=== PATIENT | female | born 1950 | race American Indian/Alaskan Native ===

== ENCOUNTER 2018-11-14 19:58 | Inpatient (IN) | payer MEDICARE ==
[2018-11-14] MEDS ORDERED: PLAVIX PO ONE (20:00)
[2018-11-14] MEDS ORDERED: HEPARIN 10,000 UNITS/10 ML IV ONE (20:00)
[2018-11-14] MEDS ORDERED: HEPARIN/ 0.45% NACL-25,000 UNIT/500 ML 25,000 UNIT/500 ML BAG IV SCH ×4 (20:00→23:45)
[2018-11-14] MEDS ORDERED: HEPARIN IV ONE (20:00)
--- NOTE | 2018-11-14 20:04 | Emergency Department Report ---
ED Chest Pain HPI - General Stated Complaint: POSS STEMI Time Seen by Provider: 11/14/18 20:00 Source: patient, EMS - History of Present Illness Initial Comments: 68-year-old female history of hypertension, diabetes presents to ED as a STEMI alert. Patient reports chest tightness, diaphoresis, nausea since this morning. Patient checked her blood sugar and it was high, so she called EMS. When EMS arrived patient was diaphoretic and seemed to be short of breath, so EKG was done. EKG shows ST elevations which were transmitted pre-hospital. STEMI alert was called based on prehospital EKG. Patient given 325 mg aspirin, one sublingual nitroglycerin and transported to the ED. MD Complaint: chest pain -: This morning Onset: during rest Pain Location: substernal Pain Radiation: none Quality: tightness Consistency: constant Improves With: nothing Worsens With: nothing re: nausea, vomting, diaphoresis. denies: dyspnea Treatments Prior to Arrival: aspirin, nitroglycerin - Related Data Home Medications Medication Instructions Recorded Confirmed Last Taken Metformin HCl [metFORMIN] 1,000 tab PO BID 11/15/18 11/15/18 11/14/18 17:00 Allergies Allergy/AdvReac Type Severity Reaction Status Date / Time No Known Allergies Allergy Unverified 11/14/18 20:53 Heart Score - HEART Score History: Highly suspicious EKG: Significant ST-depression Age: > 65 Risk factors: > 3 risk factors or hx of atherosclerotic disease Troponin: > 3x normal limit HEART Score: 10 ED Review of Systems ROS: Stated complaint: POSS STEMI Other details as noted in HPI Comment: All other systems reviewed and negative Respiratory: denies: shortness of breath Cardiovascular: chest pain Gastrointestinal: nausea, vomiting ED Past Medical Hx - Medications Home Medications: Home Medications Medication Instructions Recorded Confirmed Last Taken Type Metformin HCl [metFORMIN] 1,000 tab PO BID 11/15/18 11/15/18 11/14/18 17:00 History ED Physical Exam - General General appearance: alert, lethargic - Head Head exam: Present: atraumatic, normocephalic - Eye Eye exam: Present: normal appearance - ENT ENT exam: Present: mucous membranes moist - Neck Neck exam: Present: normal inspection - Respiratory Respiratory exam: Present: normal lung sounds bilaterally. Absent: respiratory distress - Cardiovascular Cardiovascular Exam: Present: regular rate, irregular rhythm - GI/Abdominal GI/Abdominal exam: Present: soft. Absent: distended - Extremities Exam Extremities exam: Present: normal inspection - Neurological Exam Neurological exam: Present: alert, oriented X3 - Psychiatric Psychiatric exam: Present: normal affect, normal mood - Skin Skin exam: Present: diaphoretic ED Course Vital Signs 11/14/18 11/14/18 11/14/18 20:01 23:00 23:30 Temperature 98.2 F 97.3 F L Pulse Rate 48 L 117 H Pulse Rate [ 123 H Right] Respiratory 16 23 Rate Blood Pressure 139/92 125/83 Blood Pressure 103/63 [Left] O2 Sat by Pulse 100 97 98 Oximetry 11/14/18 11/15/18 11/15/18 23:45 00:00 00:15 Temperature 97.3 F L Pulse Rate 106 H Pulse Rate [ 106 H Right] Respiratory 26 H Rate Blood Pressure 125/83 110/77 103/58 Blood Pressure [Left] O2 Sat by Pulse 96 Oximetry 11/15/18 11/15/18 11/15/18 00:29 00:30 00:31 Temperature Pulse Rate 104 H 100 H Pulse Rate [ Right] Respiratory 40 H 38 H Rate Blood Pressure 79/60 79/60 79/60 Blood Pressure [Left] O2 Sat by Pulse 96 98 Oximetry 11/15/18 11/15/18 11/15/18 00:32 00:50 00:52 Temperature Pulse Rate 100 H Pulse Rate [ Right] Respiratory 23 Rate Blood Pressure 79/60 83/57 Blood Pressure [Left] O2 Sat by Pulse 100 Oximetry 11/15/18 11/15/18 11/15/18 01:00 01:01 01:15 Temperature Pulse Rate 101 H 100 H Pulse Rate [ 104 H Right] Respiratory 28 H 34 H Rate Blood Pressure 98/65 94/59 Blood Pressure [Left] O2 Sat by Pulse 99 100 99 Oximetry 11/15/18 11/15/18 11/15/18 01:30 01:31 01:45 Temperature Pulse Rate 105 H 105 H Pulse Rate [ Right] Respiratory 39 H 59 H Rate Blood Pressure 105/71 105/71 113/75 Blood Pressure [Left] O2 Sat by Pulse 96 99 Oximetry 11/15/18 11/15/18 11/15/18 02:00 02:15 02:30 Temperature Pulse Rate 103 H 102 H 103 H Pulse Rate [ Right] Respiratory 50 H 53 H 45 H Rate Blood Pressure 105/67 113/68 107/71 Blood Pressure [Left] O2 Sat by Pulse 99 97 98 Oximetry 11/15/18 11/15/18 11/15/18 02:45 03:00 03:01 Temperature Pulse Rate 103 H 101 H 99 H Pulse Rate [ Right] Respiratory 52 H 24 53 H Rate Blood Pressure 115/72 107/65 107/65 Blood Pressure [Left] O2 Sat by Pulse 98 98 98 Oximetry 11/15/18 11/15/18 11/15/18 03:15 03:30 03:45 Temperature Pulse Rate 103 H 100 H 99 H Pulse Rate [ Right] Respiratory 53 H 45 H 36 H Rate Blood Pressure 112/76 109/69 108/68 Blood Pressure [Left] O2 Sat by Pulse 99 98 98 Oximetry 11/15/18 11/15/18 11/15/18 04:00 04:15 04:30 Temperature 96.6 F L Pulse Rate 98 H 96 H 96 H Pulse Rate [ Right] Respiratory 52 H 45 H 41 H Rate Blood Pressure 110/71 110/71 100/65 Blood Pressure [Left] O2 Sat by Pulse 100 97 96 Oximetry 11/15/18 11/15/18 11/15/18 04:45 05:01 05:05 Temperature Pulse Rate 95 H 95 H 96 H Pulse Rate [ Right] Respiratory 40 H 51 H Rate Blood Pressure 88/67 112/66 125/91 Blood Pressure [Left] O2 Sat by Pulse 96 98 Oximetry 11/15/18 11/15/18 11/15/18 05:15 05:18 05:31 Temperature Pulse Rate 93 H 97 H 96 H Pulse Rate [ Right] Respiratory 43 H 22 47 H Rate Blood Pressure 116/76 116/76 125/89 Blood Pressure [Left] O2 Sat by Pulse 96 98 98 Oximetry 11/15/18 11/15/18 11/15/18 05:45 06:01 06:12 Temperature Pulse Rate 94 H 93 H 97 H Pulse Rate [ Right] Respiratory 40 H 40 H 22 Rate Blood Pressure 151/94 143/87 Blood Pressure [Left] O2 Sat by Pulse 93 98 98 Oximetry 11/15/18 11/15/18 11/15/18 06:15 07:00 08:00 Temperature 98.5 F 98.5 F Pulse Rate 94 H 93 H 92 H Pulse Rate [ Right] Respiratory 51 H 31 H 28 H Rate Blood Pressure 151/94 111/71 73/44 Blood Pressure [Left] O2 Sat by Pulse 98 98 Oximetry 11/15/18 08:16 Temperature Pulse Rate Pulse Rate [ Right] Respiratory Rate Blood Pressure Blood Pressure [Left] O2 Sat by Pulse 96 Oximetry ED Medical Decision Making - Lab Data Result diagrams: 11/15/18 04:13 11/15/18 07:15 - EKG Data -: EKG Interpreted by Me - EKG Data Interpretation: other (ST elevations in II, III, aVF, V5, V6; ST depressions in I, aVL, V1, V2) - Medical Decision Making Pre-hospital EKG showed evidence of STEMI, so salvage laborer was activated prior to pt arrival. Upon ED arrival, repeat EKG confirmed STEMI. Attempted to administer Plavix, but stated that she could not want swallow it, so it was held. Pt received heparin bolus. Received aspirin and nitro x 1 from EMS. Vitals stable while in ED. Pt was emergently taken to the salvage laborer. - Differential Diagnosis inferior WI, posterior WI Critical Care Time: Yes Critical care time in (mins) excluding proc time.: 35 Critical care attestation.: If time is entered above; I have spent that time in minutes in the direct care of this critically ill patient, excluding procedure time. Critical Care Time: 35 min ED Disposition Clinical Impression: STEMI (ST elevation myocardial infarction) Disposition: OP ADMIT IP TO THIS HOSP Is pt being admited?: Yes Condition: Stable Time of Disposition: 20:15
[2018-11-14] MEDS ORDERED: HEPARIN/NS 5000 UNIT/500ML(CATH LAB) 1,000 ML IR ONE (20:05)
[2018-11-14] MEDS ORDERED: VERSED ONE (20:06)
[2018-11-14] MEDS ORDERED: CALAN ONE (20:06)
[2018-11-14] MEDS ORDERED: SUBLIMAZE ONE (20:06)
[2018-11-14] MEDS: NACL 0.9% 1000 ML 1,000 ML IV SCH (20:06)
[2018-11-14] MEDS ORDERED: XYLOCAINE 2% INFILTRATI ONE (20:07)
[2018-11-14] MEDS ORDERED: NACL 0.9% 500 ML 500 ML ONE ×2 (20:07→20:12)
[2018-11-14] MEDS ORDERED: NITROGLYCERIN SYRINGE 0 ML ONE (20:07)
[2018-11-14] MEDS ORDERED: ADRENALIN ONE (20:28)
[2018-11-14] MEDS ORDERED: PHENYLEPHRINE/NS Syringe 1,000 MCG/10 ML IV ONE (20:28)
[2018-11-14] MEDS ORDERED: INTROPIN DRIP 800 MG/D5W 250 ML 800 MG/250 ML BAG IV ONE ×2 (20:28→21:56)
[2018-11-14] MEDS ORDERED: XYLOCAINE CARDIAC IV ONE (20:28)
[2018-11-14] MEDS ORDERED: ATROPINE 0.1% (CARDIAC) ONE (20:28)
[2018-11-14] MEDS ORDERED: ZOFRAN ONE (20:37)
[2018-11-14] MEDS: HEPARIN 10,000 UNITS/10 ML ONE ×2 (20:50→21:00)
[2018-11-14] MEDS ORDERED: AGGRASTAT DRIP (12.5 MG/250 ML) 12,500 MCG/250 ML BAG IV ONE (20:55)
[2018-11-14] MEDS ORDERED: NACL 0.9% 250ML 250 ML ONE (21:06)
[2018-11-14] MEDS ORDERED: LEVOPHED IV ONE (21:06)
[2018-11-14] MEDS ORDERED: HEPARIN/NS 5000 UNIT/500ML(CATH LAB) 500 ML IR ONE (21:15)
[2018-11-14] MEDS ORDERED: DILAUDID ONE (21:24)
[2018-11-14] MEDS ORDERED: LOPRESSOR IV ONE (21:31)
[2018-11-14] MEDS ORDERED: PERCOCET 5/325 PO PRN (21:40)
[2018-11-14] MEDS ORDERED: DILAUDID IV PRN (21:40)
[2018-11-14] MEDS ORDERED: TYLENOL PO PRN (21:40)
[2018-11-14] MEDS ORDERED: SODIUM CHLORIDE FLUSH SYRINGE 10 ML IV PRN (21:40)
--- NOTE | 2018-11-14 21:40 | Event Note ---
Date: 11/14/18 See H/p in reports STEMI
--- NOTE | 2018-11-14 21:46 | Event Note ---
Date: 11/14/18 68-year-old woman who presented to the emergency room with chest pain and EKG consistent with acute inferior wall ST elevation myocardial infarction. Emergency cardiac catheterization revealed complete occlusion of a large caliber, dominant right coronary artery. Primary angioplasty was successfully performed, with deployment of serial, 4.0-4.5 mm eluting stents, to the midright coronary artery. There was extensive thrombus within the vessel which required export catheter thrombectomy. Due to hemodynamic instability, we inserted an intra-aortic balloon pump, and additionally patient is on pressors as needed. At conclusion of procedure patient is alert and oriented, chest pain free and breathing comfortably. Augmented diastolic blood pressure is 120. Patient is admitted to the CCU for post-[place] supportive care. During her causing the operations label clerk, she developed a narrow complex tachycardia, probably atrial fibrillation, likely exacerbated by the ongoing dopamine infusion. Once blood pressure tolerates, will institute beta reynaldo therapy, as well as digitalis for AV eamon blockade. Echocardiogram for left ventricular function and valvular function assessment. Dual oral antiplatelet therapy with Plavix and aspirin. Additional guidelines directed medical therapy as blood pressure tolerates.
[2018-11-14] MEDS ORDERED: LOPRESSOR IV PRN (21:52)
[2018-11-14] MEDS ORDERED: AGGRASTAT DRIP (12.5 MG/250 ML) 12,500 MCG/250 ML BAG IV SCH (22:00)
[2018-11-14] MEDS ORDERED: NACL 0.9% 1000 ML 1,000 ML IV SCH (22:00)
[2018-11-14] MEDS ORDERED: PLAVIX ONE (22:15)
[2018-11-14] MEDS ORDERED: HEPARIN/ 0.45% NACL-25,000 UNIT/500 ML ONE (22:15)
[2018-11-14] MEDS ORDERED: HEPARIN 10,000 UNITS/10 ML ONE (22:15)
--- NOTE | 2018-11-14 22:24 | Cardiac Catherization Report ---
CARDIAC CATHETERIZATION AND CORONARY ANGIOPLASTY REPORT REASON FOR PROCEDURE: The patient is a 68-year-old woman who presented to the Emergency Room with chest pain and EKG consistent with an acute ST elevation inferior wall myocardial infarction. Emergency cardiac catheterization was done, protocol was activated. Prior to the procedure, the patient was hypotensive with systolic blood pressure in the 60s, supported with intravenous dopamine started in the laboratory operations coordinator. PROCEDURE: The patient was prepped and draped in a sterile fashion under emergency protocol. Right femoral artery was entered using Seldinger technique followed by placement of a 6-Tanzanian sheath. A #4 left Isabela catheter was used for left coronary angiography. We then exchanged for a #4 right Isabela guiding catheter, which was advanced to the right coronary ostium. Right coronary angiography was performed. The angiograms were reviewed. CORONARY ANGIOGRAPHY: The left main coronary artery was free of significant disease. The left anterior descending artery contained a 70-75% stenosis of its mid segment. The circumflex artery and its obtuse marginal branches contained diffuse mild atherosclerosis. The right coronary artery was a large caliber, dominant vessel. This vessel was completely occluded in its mid segment. This was the infarct related lesion. CORONARY ANGIOPLASTY: We performed immediate, primary angioplasty of the right coronary artery. A 0.014 inch [employer] 50 guidewire was then introduced into the right coronary artery, directed through the occluded vessel. Following wire placement, a 3.0 mm balloon catheter was used to predilate the stenosis. Following predilatation, we were able to achieve GAVIN 2 flow, revealing a large vessel that was completely filled with intraluminal thrombus. Serial, 4.0-4.5 mm drug-eluting stents were then deployed to the primary lesion in the mid vessel. Following this, we reestablished GAVIN 2 flow down the distal vessel, revealing still extensive thrombus in the distal vessels. EXPORT CATHETER: A 6-T[place]anian Sherwood catheter was then deployed, and multiple passes were made through the vessel, we were able to extract extensive amounts of thrombus. Final angiograms revealed no residual stenosis at the primary site, evidence of still mild residual thrombus in the distal small branches of the right coronary artery, but GAVIN 2-3 flow was reestablished. The patient was chest pain free. We elected to then deploy an intraaortic balloon pump for hemodynamic support. INTRAAORTIC BALLOON PUMP: An intraaortic balloon pump was then inserted successfully and 1-2 counterpulsation. The patient was then returned to the CCU in a stable, but guarded condition. CONCLUSION: 1. Acute inferior wall ST elevation myocardial infarction. 2. Emergency cardiac catheterization. 3. A 100% occlusion of the mid right coronary artery is the infarct-related lesion. 4. Successful primary angioplasty and stenting of the right coronary artery. 5. Successful deployment of Sherwood catheter thrombectomy. 6. Successful placement of an intraaortic balloon pump for hemodynamic support. The patient will undergo supportive care post-NV in the CCU, ultimately for an elective procedure in 2-3 weeks. She will be considered for a second vessel intervention to the mid LAD, noninfarct lesion. [facility]# [id number] REJI/ANGELIKA
[2018-11-14 23:30] LABS: Hematocrit 37.3 % (30.3-42.9); Hemoglobin 11.9 gm/dl (10.1-14.3); Mean Corpuscular HGB Conc 32 % (30-34); Mean Corpuscular Volume 78 fl (79-97); Platelet Count 335 K/mm3 (140-440); Red Blood Count 4.78 M/mm3 (3.65-5.03); Red Cell Distribution Width 14.1 % (13.2-15.2)
[2018-11-14 23:42] LABS: INR 1.25 (0.87-1.13)
[2018-11-14] MEDS: LEVOPHED DRIP 4 MG/NS 250 ML 4 MG/250 ML BAG IV SCH (23:45)
--- NOTE | 2018-11-14 23:45 | XRay Report ---
CHEST 1 VIEW INDICATION: chest pain. Generalized chest tightness since 6:00 AM COMPARISON: None FINDINGS: Support devices: None. Heart: Mild cardiomegaly. Lungs/Pleura: Minimal edema. No effusion. Additional findings: None. IMPRESSION: 1. Mild cardiomegaly with minimal edema. Signer Name: Harpal Canchola MD Signed: 11/14/2018 11:40 PM Workstation Name: [id number]
[2018-11-15 00:05] LABS: Partial Thromboplastin Time 209.2 Sec. (24.2-36.6)
[2018-11-15] MEDS: LANOXIN IV SCH ×4 (00:32→13:38)
[2018-11-15 00:33] LABS: Calcium 9.7 mg/dL (8.4-10.2)
--- NOTE | 2018-11-15 00:42 | History and Physical Report ---
CHIEF COMPLAINT: Chest tightness since morning associated with sweating. HISTORY OF PRESENT ILLNESS: A 68-year-old female with history of diabetes, hypertension, comes in for left-sided chest tightness, diaphoresis and nausea since morning. The patient checked the blood sugar and it was high. At the time of arrival of EMS, the patient was diaphoretic and chest pain of about 8-9 on a scale of 1-10. No palpitations. EKG done by the EMS showed ST elevations in the inferior leads. The patient was given 325 mg of aspirin on the field and sublingual nitroglycerin and transported to the Emergency Room. No exacerbating or precipitating causes. Happened spontaneously. PAST MEDICAL HISTORY: Hypertension. No history available as far as diabetes is concerned. PAST SURGICAL HISTORY: None. FAMILY HISTORY: Hypertension. SOCIAL HISTORY: Unclear whether the patient is a smoker. The patient being taken to the laborer marine terminal immediately. REVIEW OF SYSTEMS: Significant for left-sided chest pain associated with diaphoresis. Chest pain is severe, 8-10 on a scale of 1-10. Otherwise, review of systems negative. PHYSICAL EXAMINATION: GENERAL: Elderly female. VITAL SIGNS: Blood pressure 103/63, temperature 98.2, pulse is 48, respirations are 16, sats 100%. HEENT: Unremarkable. Pupils equal and reactive. NECK: Supple, no lymphadenopathy, no thyromegaly. LUNGS: Clear to auscultation and percussion. Good air entry. CARDIOVASCULAR: S1, S2 heard. No gallop, no murmur, no rub. Apical impulse in left fifth intercostal space and midclavicular line. ABDOMEN: Soft and benign. No hepatosplenomegaly. No guarding, no rigidity. Hernial orifices are normal. EXTREMITIES: Good pedal pulses. No pedal edema. CENTRAL NERVOUS SYSTEM: Alert and oriented x 4, nonfocal exam. DIAGNOSTIC DATA: EKG shows ST elevations in lead II, lead III, aVF, V5, V6. ST depressions in lead I, aVL and V1, V2. Chest x-ray, no acute findings. All other labs are pending. ASSESSMENT AND PLAN: 1. ST elevation myocardial infarction, inferior wall myocardial infarction. The patient started on heparin. The patient was taken to cardiac laborer marine terminal [facility] The patient had a complete occlusion of a large caliber dominant right coronary artery. Primary angioplasty was performed and serial drug-eluting stents were placed to the mid right coronary artery. Extensive thrombus within the vessel, which required [place] catheter thrombectomy. The patient also was hemodynamically unstable for which intraaortic balloon pump was inserted. 2. Hypotension. Intraaortic balloon pump and pressors. 3. Tachycardia, bordering on supraventricular tachycardia. Support the blood pressure and beta-blockers as necessary. 4. Anticoagulation. The patient on heparin, Plavix and aspirin. 5. Deep venous thrombosis prophylaxis. The patient already on heparin drip. CRITICAL CARE STATEMENT: The high probability of a clinically significant sudden or life-threatening deterioration of the pulmonary, cardiac, renal systems required my full and direct attention, intervention, and personal management. The aggregate critical care time was 40 minutes. This time is in addition to time spent performing reported procedures, but includes the followin. Data review and interpretation. 2. Patient assessment and monitoring of vital signs. 3. Documentation. 4. Medication orders and management. [facility]# [id number] ERNIE/ANGELIKA
[2018-11-15 00:56] LABS: Hematocrit 35.6 % (30.3-42.9); Hemoglobin 11.4 gm/dl (10.1-14.3); Mean Corpuscular HGB Conc 32 % (30-34); Mean Corpuscular Volume 78 fl (79-97); Platelet Count 315 K/mm3 (140-440); Red Blood Count 4.59 M/mm3 (3.65-5.03); Red Cell Distribution Width 14.1 % (13.2-15.2)
[2018-11-15 01:13] LABS: Albumin 3.9 g/dL (3.9-5); Calcium 9.3 mg/dL (8.4-10.2)
[2018-11-15] MEDS: PROTONIX PO SCH ×2 (01:19→10:31)
[2018-11-15] MEDS: NACL 0.9% 1000 ML 1,000 ML IV SCH ×2 (01:20→11:29)
[2018-11-15] MEDS ORDERED: D50W (25GM) Syringe IV PRN ×2 (01:29→05:22)
[2018-11-15] MEDS ORDERED: HumuLIN R SUB-Q ONE (01:41)
[2018-11-15 02:41] LABS: Chol/HDL Ratio 2.48 %
[2018-11-15 03:09] LABS: Band Neutrophils # (Manual) 0.4 K/mm3; Basophils % (Manual) 0 % (0.0-1.8); Eosinophils % (Manual) 0 % (0.0-4.3); Total Cells Counted 100
[2018-11-15 03:10] LABS: Anisocytosis 1+; Hypochromasia 1+; Platelet Estimate Consistent w Auto; Poikilocytosis 1+
[2018-11-15 03:34] LABS: Band Neutrophils # (Manual) 0.4 K/mm3; Basophils % (Manual) 0 % (0.0-1.8); Eosinophils % (Manual) 0 % (0.0-4.3); Total Cells Counted 100
[2018-11-15 03:35] LABS: Anisocytosis 1+; Hypochromasia 1+; Platelet Estimate Consistent w Auto
[2018-11-15] MEDS: LEVOPHED DRIP 4 MG/NS 250 ML 4 MG/250 ML BAG IV SCH ×3 (04:36→20:18)
[2018-11-15 04:58] LABS: Hematocrit 34.6 % (30.3-42.9); Hemoglobin 11.1 gm/dl (10.1-14.3); Mean Corpuscular HGB Conc 32 % (30-34); Mean Corpuscular Volume 79 fl (79-97); Platelet Count 278 K/mm3 (140-440); Red Cell Distribution Width 14.3 % (13.2-15.2)
[2018-11-15 05:10] LABS: Calcium 9.2 mg/dL (8.4-10.2)
[2018-11-15] MEDS: HEPARIN/ 0.45% NACL-25,000 UNIT/500 ML 25,000 UNIT/500 ML BAG IV SCH (05:36)
[2018-11-15] MEDS: HumuLIN R 100 UNITS in NACL 0.9% 99 ML IV SCH ×3 (06:25→19:54)
[2018-11-15 06:33] LABS: Calcium 8.9 mg/dL (8.4-10.2)
[2018-11-15 06:56] LABS: Eosinophils % (Manual) 0 % (0.0-4.3); Total Cells Counted 100
[2018-11-15 06:57] LABS: Anisocytosis Few; Hypochromasia Rare
[2018-11-15 06:58] LABS: Platelet Estimate Consistent w Auto
[2018-11-15] MEDS ORDERED: HumaLOG SUB-Q SCH ×2 (07:30→12:00)
[2018-11-15 07:53] LABS: Calcium 8.4 mg/dL (8.4-10.2)
--- NOTE | 2018-11-15 08:34 | XRay Report ---
CHEST 1 VIEW INDICATION: Status post coronary artery catheterization. History of chest pain.. COMPARISON: 11/14/2018 FINDINGS: Support devices: None. Heart: Stable borderline heart size. Lungs/Pleura: No acute air space or interstitial disease. Additional findings: none IMPRESSION: No acute findings. Signer Name: Darryn Amanda Jr, MD Signed: 11/15/2018 8:29 AM Workstation Name: [id number]
--- NOTE | 2018-11-15 08:57 | Progress Note ---
Assessment and Plan Assessment and plan: Patient is a 68 yo woman with a history hypertension and DM type 2 who presented to [facility] ED with chest pains. She was found to have acute inferior wall STEMI and emergently sent for LHC. The LHC revealed complete occlusion of a large caliber, dominant right coronary artery. Primary angioplasty was successfully performed, with deployment of serial, 4.0-4.5 mm drug eluting stents, to the mid right coronary artery. There was extensive thrombus within the vessel which required export catheter thrombectomy. Patient was hemodynamic instability with hypotension so Dr. Romero inserted an intra-aortic balloon pump started vasopressors. During the LHC, she developed a narrow complex tachycardia, probably atrial fibrillation, likely exacerbated by the ongoing dopamine infusion. STEMI s/p PCI, Dual oral antiplatelet therapy with Plavix and aspirin. Hypotension on IntraAortic balloon pump: Cardiology following ARF, ATN most likely: consult Nephrology Acute Combined heart failure suspected: ECHO SIRS with organ dysfunction HONK started on insulin drip Hypomagnesemia: replace via IV CCT 36 minutes History Interval history: Patient was seen and examined. Follow-up on current diagnosis of STEMI. No overnight events reported to me. Patient denies any chest pain, shortness breath, nausea/vomiting or severe headaches. Imaging, nursing note, chart, labs and old chart reviewed. Discussed with patient. Hospitalist Physical - Physical exam Narrative exam: Gen: ill appearing, HEENT: NCAT, EOMI, PERRL, OP Clear Neck: supple, no adenopathy, no thyromegaly, no JVD CVS/Heart: RRR, normal S1S2, pulses present bilaterally Chest/Lungs: CTA B, Symmetrical chest expansion, good air entry bilaterally GI/Abdomen: soft, NTND, good bowel sounds, no guarding or rebound /Bladder: no suprapubic tenderness, no CVA or paraspinal tenderness Extermity/Skin: no c/c/e, no obvious rash MSK: FROM x 4 Neuro: CN 2-12 grossly intact, no new focal deficits Psych: calm - Constitutional Vitals: Temp Pulse Resp BP Pulse Ox 98.5 F 94 H 51 H 151/94 96 11/15/18 08:00 11/15/18 06:15 11/15/18 06:15 11/15/18 06:15 11/15/18 08:16 Results - Labs CBC & Chem 7: 11/15/18 04:13 11/15/18 09:02 Labs: Laboratory Last Values WBC 21.4 K/mm3 (4.5-11.0) H 11/15/18 04:13 RBC 4.40 M/mm3 (3.65-5.03) 11/15/18 04:13 Hgb 11.1 gm/dl (10.1-14.3) 11/15/18 04:13 Hct 34.6 % (30.3-42.9) 11/15/18 04:13 MCV 79 fl (79-97) 11/15/18 04:13 MCH 25 pg (28-32) L 11/15/18 04:13 MCHC 32 % (30-34) 11/15/18 04:13 RDW 14.3 % (13.2-15.2) 11/15/18 04:13 Plt Count 278 K/mm3 (140-440) 11/15/18 04:13 Add Manual Diff Complete 11/15/18 04:13 Total Counted 100 11/15/18 04:13 Seg Neuts % (Manual) 87.0 % (40.0-70.0) H 11/15/18 04:13 0 % 11/15/18 04:13 7.0 % (13.4-35.0) L 11/15/18 04:13 Reactive Lymphs % (Man) 0 % 11/15/18 04:13 4.0 % (0.0-7.3) 11/15/18 04:13 0 % (0.0-4.3) 11/15/18 04:13 1.0 % (0.0-1.8) 11/15/18 04:13 1.0 % 11/15/18 04:13 0 % 11/15/18 04:13 0 % 11/15/18 04:13 0 % 11/15/18 04:13 Nucleated RBC % Not Reportable 11/15/18 04:13 Seg Neutrophils # Man 18.6 K/mm3 (1.8-7.7) H 11/15/18 04:13 Band Neutrophils # 0.0 K/mm3 11/15/18 04:13 1.5 K/mm3 (1.2-5.4) 11/15/18 04:13 Abs React Lymphs (Man) 0.0 K/mm3 11/15/18 04:13 0.9 K/mm3 (0.0-0.8) H 11/15/18 04:13 0.0 K/mm3 (0.0-0.4) 11/15/18 04:13 0.2 K/mm3 (0.0-0.1) H 11/15/18 04:13 0.2 K/mm3 11/15/18 04:13 0.0 K/mm3 11/15/18 04:13 0.0 K/mm3 11/15/18 04:13 Blast Cells # 0.0 K/mm3 11/15/18 04:13 WBC Morphology Not Reportable 11/15/18 04:13 Hypersegmented Neuts Not Reportable 11/15/18 04:13 Hyposegmented Neuts Not Reportable 11/15/18 04:13 Hypogranular Neuts Not Reportable 11/15/18 04:13 Not Reportable 11/15/18 04:13 Not Reportable 11/15/18 04:13 Not Reportable 11/15/18 04:13 Not Reportable 11/15/18 04:13 Not Reportable 11/15/18 04:13 Not Reportable 11/15/18 04:13 Consistent w auto 11/15/18 04:13 Not Reportable 11/15/18 04:13 Plt Clumps, EDTA Not Reportable 11/15/18 04:13 Not Reportable 11/15/18 04:13 Not Reportable 11/15/18 04:13 Not Reportable 11/15/18 04:13 Plt Morphology Comment Not Reportable 11/15/18 04:13 RBC Morphology Not Reportable 11/15/18 04:13 Dimorphic RBCs Not Reportable 11/15/18 04:13 Not Reportable 11/15/18 04:13 Rare 11/15/18 04:13 Not Reportable 11/15/18 04:13 Few 11/15/18 04:13 Not Reportable 11/15/18 04:13 Not Reportable 11/15/18 04:13 Not Reportable 11/15/18 04:13 Not Reportable 11/15/18 04:13 Not Reportable 11/15/18 04:13 Not Reportable 11/15/18 04:13 Not Reportable 11/15/18 04:13 Not Reportable 11/15/18 04:13 Not Reportable 11/15/18 04:13 Not Reportable 11/15/18 04:13 Not Reportable 11/15/18 04:13 Not Reportable 11/15/18 04:13 Not Reportable 11/15/18 04:13 Not Reportable 11/15/18 04:13 Not Reportable 11/15/18 04:13 Acanthocytes (Spur) Not Reportable 11/15/18 04:13 Rouleaux Not Reportable 11/15/18 04:13 Not Reportable 11/15/18 04:13 Not Reportable 11/15/18 04:13 Not Reportable 11/15/18 04:13 Not Reportable 11/15/18 04:13 Hem Pathologist Commnt No 11/15/18 04:13 PT 15.4 Sec. (12.2-14.9) H 11/14/18 22:48 INR 1.25 (0.87-1.13) H 11/14/18 22:48 APTT 209.2 Sec. (24.2-36.6) H* 11/14/18 22:48 Heparin Anti-Xa Level 0.73 U.I./ml (0.3-0.7) H 11/15/18 04:13 Sodium 134 mmol/L (137-145) L 11/15/18 07:15 Potassium 4.9 mmol/L (3.6-5.0) 11/15/18 07:15 Chloride 100.4 mmol/L (98-107) 11/15/18 07:15 Carbon Dioxide 11 mmol/L (22-30) L 11/15/18 07:15 28 mmol/L 11/15/18 07:15 BUN 27 mg/dL (7-17) H 11/15/18 07:15 2.2 mg/dL (0.7-1.2) H 11/15/18 07:15 Estimated GFR 27 ml/min 11/15/18 07:15 12 % 11/15/18 07:15 Glucose 680 mg/dL (65-100) H* 11/15/18 07:15 POC Glucose > 500 (70-105) H 11/15/18 07:23 10.7 % (4-6) H 11/14/18 22:48 Calcium 8.4 mg/dL (8.4-10.2) 11/15/18 07:15 Phosphorus 4.60 mg/dL (2.5-4.5) H 11/15/18 05:47 Magnesium 1.60 mg/dL (1.7-2.3) L 11/15/18 05:47 0.40 mg/dL (0.1-1.2) 11/15/18 00:47 AST 422 units/L (5-40) H 11/15/18 00:47 ALT 53 units/L (7-56) 11/15/18 00:47 106 units/L (35-129) 11/15/18 00:47 6394 units/L (30-135) H 11/15/18 04:13 CK-MB (CK-2) 331.0 ng/mL (0.0-4.0) H 11/15/18 04:13 CK-MB (CK-2) Rel Index 5.1 (0-4) H 11/15/18 04:13 35.300 ng/mL (0.00-0.029) H* 11/15/18 04:13 7.1 g/dL (6.3-8.2) 11/15/18 00:47 3.9 g/dL (3.9-5) 11/15/18 00:47 1.2 % 11/15/18 00:47 Triglycerides 53 mg/dL (2-149) 11/14/18 22:48 Cholesterol 191 mg/dL (50-199) 11/14/18 22:48 124 mg/dL (50-130) 11/14/18 22:48 77 mg/dL (40-59) H 11/14/18 22:48 2.48 % 11/14/18 22:48 Blood Type A POSITIVE 11/14/18 22:48 Antibody Screen Negative 11/14/18 22:48 Active Medications - Current Medications Current Medications: Generic Name Dose Route Start Last Admin Trade Name Freq PRN Reason Stop Dose Admin Acetaminophen 650 mg 11/14/18 21:40 Tylenol PO Q4H PRN Pain MILD(1-3)/Fever >100.5/PARR Aspirin 325 mg 11/15/18 10:00 Ecotrin PO QDAY MARIELY Atorvastatin Calcium 40 mg 11/14/18 22:00 11/15/18 01:19 Lipitor PO Not Given QHS MARIELY Clopidogrel Bisulfate 75 mg 11/15/18 10:00 Plavix PO QDAY MARIELY Dextrose 0 ml 11/15/18 05:22 D50w (25gm) Syringe IV PRN PRN Hypoglycemia Digoxin 0.125 mg 11/15/18 17:00 Lanoxin PO DAILY@1700 MARIELY Digoxin 0.25 mg 11/15/18 06:00 11/15/18 05:05 Lanoxin IV 11/15/18 12:01 0.25 mg Q6H MARIELY Administration Hydromorphone HCl 1 mg 11/14/18 21:40 Dilaudid IV Q3H PRN Pain , Severe (7-10) Tirofiban/Sodium Chloride 12,500 mcg in 250 mls @ 8.25 mls/hr 11/14/18 22:00 Aggrastat Drip (12.5 Mg/250 Ml) IV 11/15/18 15:59 DIRECT MARIELY Protocol Per Protocol Dopamine HCl/Dextrose 800 mg in 250 mls @ 8.505 mls/hr 11/14/18 21:56 11/14/18 23:30 Intropin Drip 800 Mg/D5w 250 Ml IV 11/16/18 03:19 0 mcg/kg/min TITR ONE 0 mls/hr Titration Protocol 5 MCG/KG/MIN Norepinephrine 4 mg in 250 mls @ 18.75 mls/hr 11/14/18 22:00 11/15/18 08:15 Levophed Drip 4 Mg/Ns 250 Ml IV 8 mcg/min TITR MARIELY 30 mls/hr Titration Protocol 5 MCG/MIN Sodium Chloride 1,000 mls @ 100 mls/hr 11/14/18 23:45 11/15/18 01:20 Nacl 0.9% 1000 Ml IV 100 mls/hr DIRECT MARIELY Administration Insulin Human Regular 100 100 mls @ 1 mls/hr 11/15/18 06:00 11/15/18 08:05 units/ Sodium Chloride IV 16 units/hr TITR MARIELY 16 mls/hr Titration Protocol 1 UNITS/HR Heparin Sodium/Sodium Chloride 25,000 unit in 500 mls @ 20 mls/hr 11/15/18 06:00 11/15/18 05:36 Heparin/ 0.45% Nacl-25,000 Unit/500 Ml IV 600 units/hr TITRATE MARIELY 12 mls/hr Administration Protocol 1,000 UNITS/HR Magnesium Sulfate 2 gm in 50 mls @ 25 mls/hr 11/15/18 09:00 Magnesium Sulfate 2gm/50ml IV 11/15/18 10:59 ONCE ONE Insulin Human Lispro 0 unit 11/15/18 07:30 Humalog SUB-Q ACHS [facility] Protocol Metoprolol Tartrate 2.5 mg 11/14/18 21:52 Lopressor IV Q4H PRN HR >130 Ondansetron HCl 4 mg 11/14/18 21:40 Zofran IV Q8H PRN Nausea And Vomiting Oxycodone/Acetaminophen 1 tab 11/14/18 21:40 Percocet 5/325 PO Q6H PRN Pain, Moderate (4-6) Pantoprazole Sodium 40 mg 11/14/18 22:00 11/15/18 01:19 Protonix PO Not Given QDAY MARIELY Sodium Chloride 10 ml 11/14/18 22:00 Sodium Chloride Flush Syringe 10 Ml IV BID MARIELY Sodium Chloride 10 ml 11/14/18 21:40 Sodium Chloride Flush Syringe 10 Ml IV PRN PRN LINE FLUSH
[2018-11-15] MEDS ORDERED: MAGNESIUM SULFATE 2GM/50ML 2 GM/50 ML BAG IV ONE ×2 (09:00→09:02)
[2018-11-15 09:31] LABS: BUN/Creatinine Ratio 15; Blood Urea Nitrogen 18 mg/dL (7-17); Hemolysis Index 11
[2018-11-15 10:02] LABS: Calcium TNR mg/dL (8.4-10.2)
[2018-11-15] MEDS: PLAVIX PO SCH (10:31)
[2018-11-15] MEDS: ECOTRIN PO SCH (10:32)
--- NOTE | 2018-11-15 11:20 | Progress Note ---
<ROBBIE SINGLETON - Last Filed: 11/15/18 11:15> Assessment and Plan Acute inferior wall ST elevation myocardial infarction s/p PCI of the right coronary artery using drug eluting stents, to the midright coronary artery. s/p export catheter thrombectomy s/p placement of intra-aortic balloon pump and pressors for hemodynamic suppo rt. IABP changed to 1:1. narrow complex tachycardia vesrus atrial fibrillation during labor relations director course, likely exacerbated by the ongoing dopamine infusion. Diabetes -poorly controlled Echocardiogram for left ventricular function and valvular function assessment. Continue digoxin for narrow complex tachycardia versus atrial fibrillation. Once blood pressure tolerates, will institute beta reynaldo therapy. Continue dual oral antiplatelet therapy with Plavix and aspirin. Discontinue aggrastat and continue heparin therapy. Additional guidelines directed medical therapy as blood pressure tolerates. Subjective Date of service: 11/15/18 Interval history: Patient is resting in bed. She denies chest pain and shortness of breath. IABP is in place. She remains on pressors for support. Objective Vital Signs Temp Pulse Pulse Resp BP BP Pulse Ox 11/15/18 10:00 88 29 H 104/58 98 11/15/18 09:45 88 43 H 109/52 98 11/15/18 09:30 94 H 56 H 120/58 98 11/15/18 09:15 90 43 H 121/54 98 11/15/18 09:00 92 H 18 109/79 97 11/15/18 08:45 92 H 45 H 144/44 99 11/15/18 08:31 90 29 H 77/45 99 11/15/18 08:16 96 11/15/18 08:15 89 31 H 73/44 99 11/15/18 08:01 106 H 24 73/44 97 11/15/18 08:00 98.5 F 92 H 28 H 73/44 98 11/15/18 07:45 91 H 38 H 85/65 100 11/15/18 07:31 92 H 46 H 120/69 11/15/18 07:15 94 H 30 H 120/69 98 11/15/18 07:00 98.5 F 95 H 24 111/71 98 11/15/18 06:45 94 H 27 H 124/60 97 11/15/18 06:31 93 H 47 H 124/60 96 11/15/18 06:15 94 H 51 H 151/94 11/15/18 06:12 97 H 22 143/87 98 11/15/18 06:01 93 H 40 H 151/94 98 11/15/18 05:45 94 H 40 H 93 11/15/18 05:31 96 H 47 H 125/89 98 11/15/18 05:18 97 H 22 116/76 98 11/15/18 05:15 93 H 43 H 116/76 96 11/15/18 05:05 96 H 125/91 11/15/18 05:01 95 H 51 H 112/66 98 11/15/18 04:45 95 H 40 H 88/67 96 11/15/18 04:30 96 H 41 H 100/65 96 11/15/18 04:15 96 H 45 H 110/71 97 11/15/18 04:00 96.6 F L 98 H 52 H 110/71 100 11/15/18 03:45 99 H 36 H 108/68 98 11/15/18 03:30 100 H 45 H 109/69 98 11/15/18 03:15 103 H 53 H 112/76 99 11/15/18 03:01 99 H 53 H 107/65 98 11/15/18 03:00 101 H 24 107/65 98 11/15/18 02:45 103 H 52 H 115/72 98 11/15/18 02:30 103 H 45 H 107/71 98 11/15/18 02:15 102 H 53 H 113/68 97 11/15/18 02:00 103 H 50 H 105/67 99 11/15/18 01:45 105 H 59 H 113/75 99 11/15/18 01:31 105 H 39 H 105/71 96 11/15/18 01:30 105/71 11/15/18 01:15 100 H 34 H 94/59 99 11/15/18 01:01 100 11/15/18 01:00 101 H 104 H 28 H 98/65 99 11/15/18 00:52 100 H 23 100 11/15/18 00:50 83/57 11/15/18 00:32 79/60 11/15/18 00:31 100 H 38 H 79/60 98 11/15/18 00:30 79/60 11/15/18 00:29 104 H 40 H 79/60 96 11/15/18 00:15 103/58 11/15/18 00:00 97.3 F L 106 H 106 H 26 H 110/77 96 11/14/18 23:45 125/83 11/14/18 23:30 125/83 98 11/14/18 23:00 97.3 F L 117 H 123 H 23 139/92 97 11/14/18 20:01 98.2 F 48 L 16 103/63 100 - Physical Examination General: No Apparent Distress Cardiac: Positive: Reg Rate and Rhythm Lungs: Positive: Decreased Breath Sounds Neuro: Positive: Grossly Intact Extremities: Absent: edema - Labs and Meds Cardiac Enzymes 11/14/18 11/15/18 11/15/18 Range/Units 22:48 00:47 00:47 AST 422 H (5-40) units/L CK-MB (CK-2) 300.0 H 300.0 H (0.0-4.0) ng/mL 11/15/18 Range/Units 04:13 AST (5-40) units/L CK-MB (CK-2) 331.0 H (0.0-4.0) ng/mL Coagulation 11/14/18 Range/Units 22:48 PT 15.4 H (12.2-14.9) Sec. INR 1.25 H (0.87-1.13) APTT 209.2 H* (24.2-36.6) Sec. Lipids 11/14/18 Range/Units 22:48 Triglycerides 53 (2-149) mg/dL Cholesterol 191 (50-199) mg/dL HDL Cholesterol 77 H (40-59) mg/dL Cholesterol/HDL Ratio 2.48 % CBC 11/14/18 11/15/18 11/15/18 Range/Units 22:48 00:47 04:13 WBC 21.1 H 20.8 H 21.4 H (4.5-11.0) K/mm3 RBC 4.78 4.59 4.40 (3.65-5.03) M/mm3 Hgb 11.9 11.4 11.1 (10.1-14.3) gm/dl Hct 37.3 35.6 34.6 (30.3-42.9) % Plt Count 335 315 278 (140-440) K/mm3 Comprehensive Metabolic Panel 11/14/18 11/15/18 11/15/18 Range/Units 22:48 00:47 04:13 Sodium 132 L 131 L 132 L (137-145) mmol/L Potassium 4.6 5.1 H 5.3 H (3.6-5.0) mmol/L Chloride 91.7 L 93.0 L 92.9 L (98-107) mmol/L Carbon Dioxide 17 L 15 L 14 L (22-30) mmol/L BUN 25 H 25 H 27 H (7-17) mg/dL Creatinine 1.6 H 1.7 H 2.2 H (0.7-1.2) mg/dL Glucose 617 H* 660 H* 734 H* (65-100) mg/dL Calcium 9.7 9.3 9.2 (8.4-10.2) mg/dL AST 422 H (5-40) units/L ALT 53 (7-56) units/L Alkaline Phosphatase 106 (35-129) units/L Total Protein 7.1 (6.3-8.2) g/dL Albumin 3.9 (3.9-5) g/dL 11/15/18 11/15/18 11/15/18 Range/Units 05:47 07:15 09:02 Sodium 131 L 134 L 142 D (137-145) mmol/L Potassium 5.6 H 4.9 2.7 L* D (3.6-5.0) mmol/L Chloride 92.9 L 100.4 117.7 H (98-107) mmol/L Carbon Dioxide 12 L 11 L TNR (22-30) mmol/L BUN 28 H 27 H 18 H (7-17) mg/dL Creatinine 2.3 H 2.2 H 1.2 (0.7-1.2) mg/dL Glucose 733 H* 680 H* 402 H (65-100) mg/dL Calcium 8.9 8.4 TNR (8.4-10.2) mg/dL AST (5-40) units/L ALT (7-56) units/L Alkaline Phosphatase (35-129) units/L Total Protein (6.3-8.2) g/dL Albumin (3.9-5) g/dL <SHELDON BHATIA - Last Filed: 11/15/18 20:20> Assessment and Plan I have seen and evaluated the patient and agree with the assessment and plan. Echo is pending. Patient remains on pressure support with levophed - ween as tolerated. Continue IABP - changed to 1:1 for improved augmented pressures. Stop aggrastat as the patient is having some bleeding around the sheath. Objective Vital Signs Temp Pulse Pulse Resp BP Pulse Ox 11/15/18 19:15 96 H 26 H 116/56 11/15/18 19:00 93 H 30 H 124/47 97 11/15/18 18:45 88 35 H 120/57 99 11/15/18 18:30 94 H 35 H 113/57 98 11/15/18 18:15 92 H 40 H 115/57 99 11/15/18 18:01 94 H 43 H 124/55 98 11/15/18 18:00 93 H 28 H 115/57 100 11/15/18 17:45 96 H 43 H 136/60 99 11/15/18 17:37 96 H 113/59 11/15/18 17:31 94 H 35 H 113/59 97 11/15/18 17:15 95 H 42 H 136/65 97 11/15/18 17:00 92 H 36 H 132/53 99 11/15/18 16:45 91 H 34 H 128/62 97 11/15/18 16:30 92 H 8 L 126/54 98 11/15/18 16:15 89 29 H 126/66 11/15/18 16:00 97.6 F 85 25 H 116/61 98 11/15/18 15:45 88 31 H 132/65 97 11/15/18 15:31 95 H 18 44/21 97 11/15/18 15:15 89 37 H 103/60 11/15/18 15:00 90 34 H 112/56 96 11/15/18 14:45 90 43 H 117/57 11/15/18 14:30 90 36 H 121/54 97 11/15/18 14:15 93 H 42 H 123/63 11/15/18 14:00 86 31 H 111/51 98 11/15/18 13:45 89 41 H 107/57 98 11/15/18 13:38 89 116/56 11/15/18 13:30 91 H 34 H 116/56 11/15/18 13:15 92 H 45 H 104/57 96 11/15/18 13:00 90 45 H 100/58 96 11/15/18 12:45 88 42 H 95/59 11/15/18 12:30 85 38 H 89/56 98 11/15/18 12:15 82 36 H 80/47 96 11/15/18 12:00 98.6 F 85 46 H 88/52 100 11/15/18 11:45 85 40 H 99/45 96 11/15/18 11:30 86 22 98/52 11/15/18 11:15 81 34 H 92/48 98 11/15/18 11:00 87 27 H 91/41 98 11/15/18 10:45 88 36 H 105/55 96 11/15/18 10:30 92 H 27 H 113/59 98 11/15/18 10:15 90 42 H 118/58 97 11/15/18 10:00 90 41 H 104/58 98 11/15/18 09:45 88 43 H 109/52 98 11/15/18 09:30 94 H 56 H 120/58 98 11/15/18 09:15 90 43 H 121/54 98 11/15/18 09:00 92 H 18 109/79 97 11/15/18 08:45 92 H 45 H 144/44 99 11/15/18 08:31 90 29 H 77/45 99 11/15/18 08:16 96 11/15/18 08:15 89 31 H 73/44 99 11/15/18 08:01 106 H 24 73/44 97 11/15/18 08:00 98.5 F 92 H 31 H 73/44 98 11/15/18 07:45 91 H 38 H 85/65 100 11/15/18 07:31 92 H 46 H 120/69 11/15/18 07:15 94 H 30 H 120/69 98 11/15/18 07:00 98.5 F 95 H 24 111/71 98 11/15/18 06:45 94 H 27 H 124/60 97 11/15/18 06:31 93 H 47 H 124/60 96 11/15/18 06:15 94 H 51 H 151/94 11/15/18 06:12 97 H 22 143/87 98 11/15/18 06:01 93 H 40 H 151/94 98 11/15/18 05:45 94 H 40 H 93 11/15/18 05:31 96 H 47 H 125/89 98 11/15/18 05:18 97 H 22 116/76 98 11/15/18 05:15 93 H 43 H 116/76 96 11/15/18 05:05 96 H 125/91 11/15/18 05:01 95 H 51 H 112/66 98 11/15/18 04:45 95 H 40 H 88/67 96 11/15/18 04:30 96 H 41 H 100/65 96 11/15/18 04:15 96 H 45 H 110/71 97 11/15/18 04:00 96.6 F L 98 H 52 H 110/71 100 11/15/18 03:45 99 H 36 H 108/68 98 11/15/18 03:30 100 H 45 H 109/69 98 11/15/18 03:15 103 H 53 H 112/76 99 11/15/18 03:01 99 H 53 H 107/65 98 11/15/18 03:00 101 H 24 107/65 98 11/15/18 02:45 103 H 52 H 115/72 98 11/15/18 02:30 103 H 45 H 107/71 98 11/15/18 02:15 102 H 53 H 113/68 97 11/15/18 02:00 103 H 50 H 105/67 99 11/15/18 01:45 105 H 59 H 113/75 99 11/15/18 01:31 105 H 39 H 105/71 96 11/15/18 01:30 105/71 11/15/18 01:15 100 H 34 H 94/59 99 11/15/18 01:01 100 11/15/18 01:00 101 H 104 H 28 H 98/65 99 11/15/18 00:52 100 H 23 100 11/15/18 00:50 83/57 11/15/18 00:32 79/60 11/15/18 00:31 100 H 38 H 79/60 98 11/15/18 00:30 79/60 11/15/18 00:29 104 H 40 H 79/60 96 11/15/18 00:15 103/58 11/15/18 00:00 97.3 F L 106 H 106 H 26 H 110/77 96 11/14/18 23:45 125/83 08/13/19 23:30 125/83 98 11/14/18 23:00 97.3 F L 117 H 123 H 23 139/92 97 - Labs and Meds Cardiac Enzymes 11/14/18 11/15/18 11/15/18 Range/Units 22:48 00:47 00:47 AST 422 H (5-40) units/L CK-MB (CK-2) 300.0 H 300.0 H (0.0-4.0) ng/mL 11/15/18 Range/Units 04:13 AST (5-40) units/L CK-MB (CK-2) 331.0 H (0.0-4.0) ng/mL Coagulation 11/14/18 Range/Units 22:48 PT 15.4 H (12.2-14.9) Sec. INR 1.25 H (0.87-1.13) APTT 209.2 H* (24.2-36.6) Sec. Lipids 11/14/18 Range/Units 22:48 Triglycerides 53 (2-149) mg/dL Cholesterol 191 (50-199) mg/dL HDL Cholesterol 77 H (40-59) mg/dL Cholesterol/HDL Ratio 2.48 % CBC 11/14/18 11/15/18 11/15/18 Range/Units 22:48 00:47 04:13 WBC 21.1 H 20.8 H 21.4 H (4.5-11.0) K/mm3 RBC 4.78 4.59 4.40 (3.65-5.03) M/mm3 Hgb 11.9 11.4 11.1 (10.1-14.3) gm/dl Hct 37.3 35.6 34.6 (30.3-42.9) % Plt Count 335 315 278 (140-440) K/mm3 11/15/18 Range/Units 17:31 WBC (4.5-11.0) K/mm3 RBC (3.65-5.03) M/mm3 Hgb 11.0 (10.1-14.3) gm/dl Hct 32.8 (30.3-42.9) % Plt Count (140-440) K/mm3 Comprehensive Metabolic Panel 11/14/18 11/15/18 11/15/18 Range/Units 22:48 00:47 04:13 Sodium 132 L 131 L 132 L (137-145) mmol/L Potassium 4.6 5.1 H 5.3 H (3.6-5.0) mmol/L Chloride 91.7 L 93.0 L 92.9 L (98-107) mmol/L Carbon Dioxide 17 L 15 L 14 L (22-30) mmol/L BUN 25 H 25 H 27 H (7-17) mg/dL Creatinine 1.6 H 1.7 H 2.2 H (0.7-1.2) mg/dL Glucose 617 H* 660 H* 734 H* (65-100) mg/dL Calcium 9.7 9.3 9.2 (8.4-10.2) mg/dL AST 422 H (5-40) units/L ALT 53 (7-56) units/L Alkaline Phosphatase 106 (35-129) units/L Total Protein 7.1 (6.3-8.2) g/dL Albumin 3.9 (3.9-5) g/dL 11/15/18 11/15/18 11/15/18 Range/Units 05:47 07:15 09:02 Sodium 131 L 134 L 142 D (137-145) mmol/L Potassium 5.6 H 4.9 2.7 L* D (3.6-5.0) mmol/L Chloride 92.9 L 100.4 117.7 H (98-107) mmol/L Carbon Dioxide 12 L 11 L TNR (22-30) mmol/L BUN 28 H 27 H 18 H (7-17) mg/dL Creatinine 2.3 H 2.2 H 1.2 (0.7-1.2) mg/dL Glucose 733 H* 680 H* 402 H (65-100) mg/dL Calcium 8.9 8.4 TNR (8.4-10.2) mg/dL AST (5-40) units/L ALT (7-56) units/L Alkaline Phosphatase (35-129) units/L Total Protein (6.3-8.2) g/dL Albumin (3.9-5) g/dL 11/15/18 11/15/18 Range/Units 10:22 14:25 Sodium 135 L 136 L (137-145) mmol/L Potassium 4.5 D 4.0 (3.6-5.0) mmol/L Chloride 99.3 101.3 (98-107) mmol/L Carbon Dioxide 15 L 17 L (22-30) mmol/L BUN 31 H 34 H (7-17) mg/dL Creatinine 2.7 H D 2.8 H (0.7-1.2) mg/dL Glucose 507 H* 249 H (65-100) mg/dL Calcium 9.2 9.2 (8.4-10.2) mg/dL AST (5-40) units/L ALT (7-56) units/L Alkaline Phosphatase (35-129) units/L Total Protein (6.3-8.2) g/dL Albumin (3.9-5) g/dL
[2018-11-15 11:25] LABS: Calcium 9.2 mg/dL (8.4-10.2)
[2018-11-15] MEDS: SODIUM CHLORIDE FLUSH SYRINGE 10 ML IV SCH ×2 (11:33→21:06)
--- NOTE | 2018-11-15 12:53 | Consultation ---
History of Present Illness - Reason for Consult Consult date: 11/15/18 STEMI on Balloon Pump Requesting physician: IRENE CAMOPS - History of Present Illness 68 y/o female admitted as STEMI, s/p PCI with stent and required balloon pump augmentation. Not intubated, awake and alert satting well on 2 liters. Mildly tachypnic. But denies chest pain and shortness of breath. Currently on Heparin drip. Past History Past Medical History: CAD, diabetes Family history: no significant family history Medications and Allergies Allergies Allergy/AdvReac Type Severity Reaction Status Date / Time No Known Allergies Allergy Unverified 11/14/18 20:53 Home Medications Medication Instructions Recorded Confirmed Last Taken Type Metformin HCl [metFORMIN] 1,000 tab PO BID 11/15/18 11/15/18 11/14/18 17:00 History Active Meds: Active Medications Acetaminophen (Tylenol) 650 mg PO Q4H PRN PRN Reason: Pain MILD(1-3)/Fever >100.5/PARR Aspirin (Ecotrin) 325 mg PO QDAY [facility] Last Admin: 11/15/18 10:32 Dose: 325 mg Documented by: Atorvastatin Calcium (Lipitor) 40 mg PO QHS [facility] Last Admin: 11/15/18 01:19 Dose: Not Given Documented by: Clopidogrel Bisulfate (Plavix) 75 mg PO QDAY [facility] Last Admin: 11/15/18 10:31 Dose: 75 mg Documented by: Dextrose (D50w (25gm) Syringe) 0 ml IV PRN PRN PRN Reason: Hypoglycemia Digoxin (Lanoxin) 0.125 mg PO DAILY@1700 MARIELY Hydromorphone HCl (Dilaudid) 1 mg IV Q3H PRN PRN Reason: Pain , Severe (7-10) Dopamine HCl/Dextrose (Intropin Drip 800 Mg/D5w 250 Ml) 800 mg in 250 mls @ 8.505 mls/hr IV TITR ONE; Protocol Stop: 11/16/18 03:19 Last Titration: 11/14/18 23:30 Dose: 0 mcg/kg/min, 0 mls/hr Documented by: Norepinephrine (Levophed Drip 4 Mg/Ns 250 Ml) 4 mg in 250 mls @ 18.75 mls/hr IV TITR [facility]; Protocol Last Titration: 11/15/18 12:15 Dose: 10 mcg/min, 37.5 mls/hr Documented by: Sodium Chloride (Nacl 0.9% 1000 Ml) 1,000 mls @ 100 mls/hr IV DIRECT [facility] Last Admin: 11/15/18 11:29 Dose: 100 mls/hr Documented by: Insulin Human Regular 100 (units/ Sodium Chloride) 100 mls @ 1 mls/hr IV TITR MARIELY; Protocol Last Titration: 11/15/18 12:17 Dose: 18 units/hr, 18 mls/hr Documented by: Heparin Sodium/Sodium Chloride (Heparin/ 0.45% Nacl-25,000 Unit/500 Ml) 25,000 unit in 500 mls @ 20 mls/hr IV TITRATE MARIELY; Protocol Last Titration: 11/15/18 11:55 Dose: 600 units/hr, 12 mls/hr Documented by: Metoprolol Tartrate (Lopressor) 2.5 mg IV Q4H PRN PRN Reason: HR >130 Ondansetron HCl (Zofran) 4 mg IV Q8H PRN PRN Reason: Nausea And Vomiting Oxycodone/Acetaminophen (Percocet 5/325) 1 tab PO Q6H PRN PRN Reason: Pain, Moderate (4-6) Pantoprazole Sodium (Protonix) 40 mg PO QDAY [facility] Last Admin: 11/15/18 10:31 Dose: 40 mg Documented by: Sodium Chloride (Sodium Chloride Flush Syringe 10 Ml) 10 ml IV BID [facility] Last Admin: 11/15/18 11:33 Dose: 10 ml Documented by: Sodium Chloride (Sodium Chloride Flush Syringe 10 Ml) 10 ml IV PRN PRN PRN Reason: LINE FLUSH Review of Systems All systems: negative Exam - Constitutional Vitals: Temp Pulse Resp BP Pulse Ox 98.5 F 81 34 H 92/48 98 11/15/18 08:00 11/15/18 11:15 11/15/18 11:15 11/15/18 11:15 11/15/18 11:15 Results - Labs CBC & Chem 7: 11/15/18 04:13 11/15/18 10:22 Labs: Abnormal lab results 11/14/18 11/14/18 11/14/18 Range/Units 20:55 21:18 22:48 WBC 21.1 H (4.5-11.0) K/mm3 MCV 78 L (79-97) fl MCH 25 L (28-32) pg Seg Neuts % (Manual) 91.0 H (40.0-70.0) % Lymphocytes % (Manual) 3.0 L (13.4-35.0) % Seg Neutrophils # Man 19.2 H (1.8-7.7) K/mm3 Lymphocytes # (Manual) 0.6 L (1.2-5.4) K/mm3 Monocytes # (Manual) (0.0-0.8) K/mm3 Basophils # (Manual) (0.0-0.1) K/mm3 PT (12.2-14.9) Sec. INR (0.87-1.13) APTT (24.2-36.6) Sec. Activated Clotting Time 153 H 252 H (74-137) Heparin Anti-Xa Level (0.3-0.7) U.I./ml Sodium (137-145) mmol/L Potassium (3.6-5.0) mmol/L Chloride (98-107) mmol/L Carbon Dioxide (22-30) mmol/L BUN (7-17) mg/dL Creatinine (0.7-1.2) mg/dL Glucose (65-100) mg/dL POC Glucose (70-105) Hemoglobin A1c (4-6) % Phosphorus (2.5-4.5) mg/dL Magnesium (1.7-2.3) mg/dL AST (5-40) units/L Total Creatine Kinase (30-135) units/L CK-MB (CK-2) (0.0-4.0) ng/mL CK-MB (CK-2) Rel Index (0-4) Troponin T (0.00-0.029) ng/mL HDL Cholesterol (40-59) mg/dL 11/14/18 11/14/18 11/14/18 Range/Units 22:48 22:48 22:48 WBC (4.5-11.0) K/mm3 MCV (79-97) fl MCH (28-32) pg Seg Neuts % (Manual) (40.0-70.0) % Lymphocytes % (Manual) (13.4-35.0) % Seg Neutrophils # Man (1.8-7.7) K/mm3 Lymphocytes # (Manual) (1.2-5.4) K/mm3 Monocytes # (Manual) (0.0-0.8) K/mm3 Basophils # (Manual) (0.0-0.1) K/mm3 PT 15.4 H (12.2-14.9) Sec. INR 1.25 H (0.87-1.13) APTT 209.2 H* (24.2-36.6) Sec. Activated Clotting Time (74-137) Heparin Anti-Xa Level (0.3-0.7) U.I./ml Sodium 132 L (137-145) mmol/L Potassium (3.6-5.0) mmol/L Chloride 91.7 L (98-107) mmol/L Carbon Dioxide 17 L (22-30) mmol/L BUN 25 H (7-17) mg/dL Creatinine 1.6 H (0.7-1.2) mg/dL Glucose 617 H* (65-100) mg/dL POC Glucose (70-105) Hemoglobin A1c 10.7 H (4-6) % Phosphorus (2.5-4.5) mg/dL Magnesium (1.7-2.3) mg/dL AST (5-40) units/L Total Creatine Kinase 6149 H (30-135) units/L CK-MB (CK-2) 300.0 H (0.0-4.0) ng/mL CK-MB (CK-2) Rel Index 4.8 H (0-4) Troponin T 25.000 H* (0.00-0.029) ng/mL HDL Cholesterol 77 H (40-59) mg/dL 11/15/18 11/15/18 11/15/18 Range/Units 00:47 00:47 00:47 WBC 20.8 H (4.5-11.0) K/mm3 MCV 78 L (79-97) fl MCH 25 L (28-32) pg Seg Neuts % (Manual) 88.0 H (40.0-70.0) % Lymphocytes % (Manual) 3.0 L (13.4-35.0) % Seg Neutrophils # Man 18.3 H (1.8-7.7) K/mm3 Lymphocytes # (Manual) 0.6 L (1.2-5.4) K/mm3 Monocytes # (Manual) 1.5 H (0.0-0.8) K/mm3 Basophils # (Manual) (0.0-0.1) K/mm3 PT (12.2-14.9) Sec. INR (0.87-1.13) APTT (24.2-36.6) Sec. Activated Clotting Time (74-137) Heparin Anti-Xa Level (0.3-0.7) U.I./ml Sodium 131 L (137-145) mmol/L Potassium 5.1 H (3.6-5.0) mmol/L Chloride 93.0 L (98-107) mmol/L Carbon Dioxide 15 L (22-30) mmol/L BUN 25 H (7-17) mg/dL Creatinine 1.7 H (0.7-1.2) mg/dL Glucose 660 H* (65-100) mg/dL POC Glucose (70-105) Hemoglobin A1c (4-6) % Phosphorus (2.5-4.5) mg/dL Magnesium (1.7-2.3) mg/dL AST 422 H (5-40) units/L Total Creatine Kinase 5473 H (30-135) units/L CK-MB (CK-2) 300.0 H (0.0-4.0) ng/mL CK-MB (CK-2) Rel Index 5.4 H (0-4) Troponin T 30.770 H* (0.00-0.029) ng/mL HDL Cholesterol (40-59) mg/dL 11/15/18 11/15/18 11/15/18 Range/Units 04:13 04:13 04:13 WBC 21.4 H (4.5-11.0) K/mm3 MCV (79-97) fl MCH 25 L (28-32) pg Seg Neuts % (Manual) 87.0 H (40.0-70.0) % Lymphocytes % (Manual) 7.0 L (13.4-35.0) % Seg Neutrophils # Man 18.6 H (1.8-7.7) K/mm3 Lymphocytes # (Manual) (1.2-5.4) K/mm3 Monocytes # (Manual) 0.9 H (0.0-0.8) K/mm3 Basophils # (Manual) 0.2 H (0.0-0.1) K/mm3 PT (12.2-14.9) Sec. INR (0.87-1.13) APTT (24.2-36.6) Sec. Activated Clotting Time (74-137) Heparin Anti-Xa Level 0.73 H (0.3-0.7) U.I./ml Sodium 132 L (137-145) mmol/L Potassium 5.3 H (3.6-5.0) mmol/L Chloride 92.9 L (98-107) mmol/L Carbon Dioxide 14 L (22-30) mmol/L BUN 27 H (7-17) mg/dL Creatinine 2.2 H (0.7-1.2) mg/dL Glucose 734 H* (65-100) mg/dL POC Glucose (70-105) Hemoglobin A1c (4-6) % Phosphorus (2.5-4.5) mg/dL Magnesium (1.7-2.3) mg/dL AST (5-40) units/L Total Creatine Kinase 6394 H (30-135) units/L CK-MB (CK-2) 331.0 H (0.0-4.0) ng/mL CK-MB (CK-2) Rel Index 5.1 H (0-4) Troponin T 35.300 H* (0.00-0.029) ng/mL HDL Cholesterol (40-59) mg/dL 11/15/18 11/15/18 11/15/18 Range/Units 05:47 05:47 06:06 WBC (4.5-11.0) K/mm3 MCV (79-97) fl MCH (28-32) pg Seg Neuts % (Manual) (40.0-70.0) % Lymphocytes % (Manual) (13.4-35.0) % Seg Neutrophils # Man (1.8-7.7) K/mm3 Lymphocytes # (Manual) (1.2-5.4) K/mm3 Monocytes # (Manual) (0.0-0.8) K/mm3 Basophils # (Manual) (0.0-0.1) K/mm3 PT (12.2-14.9) Sec. INR (0.87-1.13) APTT (24.2-36.6) Sec. Activated Clotting Time (74-137) Heparin Anti-Xa Level (0.3-0.7) U.I./ml Sodium 131 L (137-145) mmol/L Potassium 5.6 H (3.6-5.0) mmol/L Chloride 92.9 L (98-107) mmol/L Carbon Dioxide 12 L (22-30) mmol/L BUN 28 H (7-17) mg/dL Creatinine 2.3 H (0.7-1.2) mg/dL Glucose 733 H* (65-100) mg/dL POC Glucose > 500 H (70-105) Hemoglobin A1c (4-6) % Phosphorus 4.60 H (2.5-4.5) mg/dL Magnesium 1.60 L (1.7-2.3) mg/dL AST (5-40) units/L Total Creatine Kinase (30-135) units/L CK-MB (CK-2) (0.0-4.0) ng/mL CK-MB (CK-2) Rel Index (0-4) Troponin T (0.00-0.029) ng/mL HDL Cholesterol (40-59) mg/dL 11/15/18 11/15/18 11/15/18 Range/Units 07:15 07:23 09:02 WBC (4.5-11.0) K/mm3 MCV (79-97) fl MCH (28-32) pg Seg Neuts % (Manual) (40.0-70.0) % Lymphocytes % (Manual) (13.4-35.0) % Seg Neutrophils # Man (1.8-7.7) K/mm3 Lymphocytes # (Manual) (1.2-5.4) K/mm3 Monocytes # (Manual) (0.0-0.8) K/mm3 Basophils # (Manual) (0.0-0.1) K/mm3 PT (12.2-14.9) Sec. INR (0.87-1.13) APTT (24.2-36.6) Sec. Activated Clotting Time (74-137) Heparin Anti-Xa Level (0.3-0.7) U.I./ml Sodium 134 L (137-145) mmol/L Potassium 2.7 L* D (3.6-5.0) mmol/L Chloride 117.7 H (98-107) mmol/L Carbon Dioxide 11 L (22-30) mmol/L BUN 27 H 18 H (7-17) mg/dL Creatinine 2.2 H (0.7-1.2) mg/dL Glucose 680 H* 402 H (65-100) mg/dL POC Glucose > 500 H (70-105) Hemoglobin A1c (4-6) % Phosphorus (2.5-4.5) mg/dL Magnesium (1.7-2.3) mg/dL AST (5-40) units/L Total Creatine Kinase (30-135) units/L CK-MB (CK-2) (0.0-4.0) ng/mL CK-MB (CK-2) Rel Index (0-4) Troponin T (0.00-0.029) ng/mL HDL Cholesterol (40-59) mg/dL 11/15/18 11/15/18 Range/Units 10:22 10:22 WBC (4.5-11.0) K/mm3 MCV (79-97) fl MCH (28-32) pg Seg Neuts % (Manual) (40.0-70.0) % Lymphocytes % (Manual) (13.4-35.0) % Seg Neutrophils # Man (1.8-7.7) K/mm3 Lymphocytes # (Manual) (1.2-5.4) K/mm3 Monocytes # (Manual) (0.0-0.8) K/mm3 Basophils # (Manual) (0.0-0.1) K/mm3 PT (12.2-14.9) Sec. INR (0.87-1.13) APTT (24.2-36.6) Sec. Activated Clotting Time (74-137) Heparin Anti-Xa Level 0.23 L (0.3-0.7) U.I./ml Sodium 135 L (137-145) mmol/L Potassium (3.6-5.0) mmol/L Chloride (98-107) mmol/L Carbon Dioxide 15 L (22-30) mmol/L BUN 31 H (7-17) mg/dL Creatinine 2.7 H D (0.7-1.2) mg/dL Glucose 507 H* (65-100) mg/dL POC Glucose (70-105) Hemoglobin A1c (4-6) % Phosphorus (2.5-4.5) mg/dL Magnesium (1.7-2.3) mg/dL AST (5-40) units/L Total Creatine Kinase (30-135) units/L CK-MB (CK-2) (0.0-4.0) ng/mL CK-MB (CK-2) Rel Index (0-4) Troponin T (0.00-0.029) ng/mL HDL Cholesterol (40-59) mg/dL - Imaging and Cardiology Chest x-ray: image reviewed (mild cardiomegaly, otherwise clear) Assessment and Plan 68 y/o female with STEMI and diabetic ketoacidosis from hyperglycemia. 1. Balloon Pump per Cards, currently at 1:1. stable BP 2. Currently on insulin drip. Sugar has not dropped below 250 but when it does, will need to change fluids to D5W to maintain adequate blood sugar levels until anion gap closes 3. Hold Metformin, only insulin for now 4. Follow up repeat BMP to assess anion GAP 5. Q1hr fingersticks CCT 31 minutes.
[2018-11-15 14:55] LABS: Calcium 9.2 mg/dL (8.4-10.2)
[2018-11-15] MEDS: D5W/0.45% NACL/KCL 20 MEQ 20 MEQ/1,000 ML BAG IV SCH (16:23)
[2018-11-15] MEDS: LANOXIN PO SCH (17:37)
[2018-11-15 17:42] LABS: Hematocrit 32.8 % (30.3-42.9)
[2018-11-15 21:15] LABS: Calcium 8.9 mg/dL (8.4-10.2)
[2018-11-15] MEDS: ZOFRAN IV PRN (21:22)
[2018-11-16] MEDS: D5W/0.45% NACL/KCL 20 MEQ 20 MEQ/1,000 ML BAG IV SCH ×2 (00:14→09:00)
[2018-11-16 05:05] LABS: Hematocrit 30.1 % (30.3-42.9)
[2018-11-16] MEDS ORDERED: HEPARIN 1,000 UNIT in NACL 0.9% 500 ML 500 ML IV SCH (09:30)
[2018-11-16] MEDS: ECOTRIN PO SCH (09:51)
[2018-11-16] MEDS: PLAVIX PO SCH (09:51)
[2018-11-16] MEDS: PROTONIX PO SCH (09:51)
[2018-11-16 11:05] LABS: Calcium 8.2 mg/dL (8.4-10.2)
[2018-11-16] MEDS ORDERED: D50W (25GM) Syringe IV PRN (11:37)
--- NOTE | 2018-11-16 11:40 | Progress Note ---
Assessment and Plan Assessment and plan: Patient is a 68 yo woman with a history hypertension and DM type 2 who presented to [facility] ED with chest pains. She was found to have acute inferior wall STEMI and emergently sent for LHC. The LHC revealed complete occlusion of a large caliber, dominant right coronary artery. Primary angioplasty was successfully performed, with deployment of serial, 4.0-4.5 mm drug eluting stents, to the mid right coronary artery. There was extensive thrombus within the vessel which required export catheter thrombectomy. Patient was hemodynamic instability with hypotension so Dr. Romero inserted an intra-aortic balloon pump started vasopressors. During the LHC, she developed a narrow complex tachycardia, probably atrial fibrillation, likely exacerbated by the ongoing dopamine infusion. Acute Inferior wall STEMI s/p PCI mid-RCA, Dual oral antiplatelet therapy with Plavix and aspirin. Hypotension on IntraAortic balloon pump: Cardiology following, input noted. Will get stat CXR to verify balloon pump placement ARF, ATN most likely: consulted Nephrology Acute Combined heart failure suspected: ECHO pending Cardiogenic shock: back on Levophed, ?needs IVF, ECHO pending, d/w Dr. Romero SIRS with organ dysfunction HONK started on insulin drip, transition off to Lantus, d.w Dr. King Hypomagnesemia: replaced via IV CCT 32 minutes History Interval history: Patient was seen and examined. Follow-up on current diagnosis of STEMI. No overnight events reported to me. Patient denies any chest pain, shortness breath, nausea/vomiting or severe headaches. Imaging, nursing note, chart, labs and old chart reviewed. Discussed with patient. Hospitalist Physical - Physical exam Narrative exam: Gen: ill appearing, HEENT: NCAT, EOMI, PERRL, OP Clear Neck: supple, no adenopathy, no thyromegaly, no JVD CVS/Heart: RRR, normal S1S2, pulses present bilaterally Chest/Lungs: CTA B, Symmetrical chest expansion, good air entry bilaterally GI/Abdomen: soft, NTND, good bowel sounds, no guarding or rebound /Bladder: no suprapubic tenderness, no CVA or paraspinal tenderness Extermity/Skin: no c/c/e, no obvious rash MSK: FROM x 4 Neuro: CN 2-12 grossly intact, no new focal deficits Psych: calm - Constitutional Vitals: Temp Pulse Resp BP Pulse Ox 99.0 F 90 16 108/36 98 11/16/18 04:00 11/16/18 11:01 11/16/18 11:01 11/16/18 11:01 11/16/18 11:01 Results - Labs CBC & Chem 7: 11/16/18 04:03 11/16/18 10:30 Labs: Laboratory Last Values WBC 21.4 K/mm3 (4.5-11.0) H 11/15/18 04:13 RBC 4.40 M/mm3 (3.65-5.03) 11/15/18 04:13 Hgb 10.0 gm/dl (10.1-14.3) L 11/16/18 04:03 Hct 30.1 % (30.3-42.9) L 11/16/18 04:03 MCV 79 fl (79-97) 11/15/18 04:13 MCH 25 pg (28-32) L 11/15/18 04:13 MCHC 32 % (30-34) 11/15/18 04:13 RDW 14.3 % (13.2-15.2) 11/15/18 04:13 Plt Count 261 K/mm3 (140-440) 11/16/18 04:03 Add Manual Diff Complete 11/15/18 04:13 Total Counted 100 11/15/18 04:13 Seg Neuts % (Manual) 87.0 % (40.0-70.0) H 11/15/18 04:13 0 % 11/15/18 04:13 7.0 % (13.4-35.0) L 11/15/18 04:13 Reactive Lymphs % (Man) 0 % 11/15/18 04:13 4.0 % (0.0-7.3) 11/15/18 04:13 0 % (0.0-4.3) 11/15/18 04:13 1.0 % (0.0-1.8) 11/15/18 04:13 1.0 % 11/15/18 04:13 0 % 11/15/18 04:13 0 % 11/15/18 04:13 0 % 11/15/18 04:13 Nucleated RBC % Not Reportable 11/15/18 04:13 Seg Neutrophils # Man 18.6 K/mm3 (1.8-7.7) H 11/15/18 04:13 Band Neutrophils # 0.0 K/mm3 11/15/18 04:13 1.5 K/mm3 (1.2-5.4) 11/15/18 04:13 Abs React Lymphs (Man) 0.0 K/mm3 11/15/18 04:13 0.9 K/mm3 (0.0-0.8) H 11/15/18 04:13 0.0 K/mm3 (0.0-0.4) 11/15/18 04:13 0.2 K/mm3 (0.0-0.1) H 11/15/18 04:13 0.2 K/mm3 11/15/18 04:13 0.0 K/mm3 11/15/18 04:13 0.0 K/mm3 11/15/18 04:13 Blast Cells # 0.0 K/mm3 11/15/18 04:13 WBC Morphology Not Reportable 11/15/18 04:13 Hypersegmented Neuts Not Reportable 11/15/18 04:13 Hyposegmented Neuts Not Reportable 11/15/18 04:13 Hypogranular Neuts Not Reportable 11/15/18 04:13 Not Reportable 11/15/18 04:13 Not Reportable 11/15/18 04:13 Not Reportable 11/15/18 04:13 Not Reportable 11/15/18 04:13 Not Reportable 11/15/18 04:13 Not Reportable 11/15/18 04:13 Consistent w auto 11/15/18 04:13 Not Reportable 11/15/18 04:13 Plt Clumps, EDTA Not Reportable 11/15/18 04:13 Not Reportable 11/15/18 04:13 Not Reportable 11/15/18 04:13 Not Reportable 11/15/18 04:13 Plt Morphology Comment Not Reportable 11/15/18 04:13 RBC Morphology Not Reportable 11/15/18 04:13 Dimorphic RBCs Not Reportable 11/15/18 04:13 Not Reportable 11/15/18 04:13 Rare 11/15/18 04:13 Not Reportable 11/15/18 04:13 Few 11/15/18 04:13 Not Reportable 11/15/18 04:13 Not Reportable 11/15/18 04:13 Not Reportable 11/15/18 04:13 Not Reportable 11/15/18 04:13 Not Reportable 11/15/18 04:13 Not Reportable 11/15/18 04:13 Not Reportable 11/15/18 04:13 Not Reportable 11/15/18 04:13 Not Reportable 11/15/18 04:13 Not Reportable 11/15/18 04:13 Not Reportable 11/15/18 04:13 Not Reportable 11/15/18 04:13 Not Reportable 11/15/18 04:13 Not Reportable 11/15/18 04:13 Not Reportable 11/15/18 04:13 Acanthocytes (Spur) Not Reportable 11/15/18 04:13 Rouleaux Not Reportable 11/15/18 04:13 Not Reportable 11/15/18 04:13 Not Reportable 11/15/18 04:13 Not Reportable 11/15/18 04:13 Not Reportable 11/15/18 04:13 Hem Pathologist Commnt No 11/15/18 04:13 PT 15.4 Sec. (12.2-14.9) H 11/14/18 22:48 INR 1.25 (0.87-1.13) H 11/14/18 22:48 APTT 209.2 Sec. (24.2-36.6) H* 11/14/18 22:48 252 (74-137) H 11/14/18 21:18 Heparin Anti-Xa Level 0.18 U.I./ml (0.3-0.7) L 11/15/18 17:31 Sodium 137 mmol/L (137-145) 11/16/18 10:30 Potassium 4.6 mmol/L (3.6-5.0) 11/16/18 10:30 Chloride 107.6 mmol/L (98-107) H 11/16/18 10:30 Carbon Dioxide 15 mmol/L (22-30) L 11/16/18 10:30 19 mmol/L 11/16/18 10:30 BUN 38 mg/dL (7-17) H 11/16/18 10:30 3.9 mg/dL (0.7-1.2) H 11/16/18 10:30 Estimated GFR 14 ml/min 11/16/18 10:30 10 % 11/16/18 10:30 Glucose 181 mg/dL (65-100) H 11/16/18 10:30 POC Glucose 151 (70-105) H 11/16/18 06:59 10.7 % (4-6) H 11/14/18 22:48 Calcium 8.2 mg/dL (8.4-10.2) L 11/16/18 10:30 Phosphorus 4.60 mg/dL (2.5-4.5) H 11/15/18 05:47 Magnesium 1.60 mg/dL (1.7-2.3) L 11/15/18 05:47 0.40 mg/dL (0.1-1.2) 11/15/18 00:47 AST 422 units/L (5-40) H 11/15/18 00:47 ALT 53 units/L (7-56) 11/15/18 00:47 106 units/L (35-129) 11/15/18 00:47 6394 units/L (30-135) H 11/15/18 04:13 CK-MB (CK-2) 331.0 ng/mL (0.0-4.0) H 11/15/18 04:13 CK-MB (CK-2) Rel Index 5.1 (0-4) H 11/15/18 04:13 35.300 ng/mL (0.00-0.029) H* 11/15/18 04:13 7.1 g/dL (6.3-8.2) 11/15/18 00:47 3.9 g/dL (3.9-5) 11/15/18 00:47 1.2 % 11/15/18 00:47 Triglycerides 53 mg/dL (2-149) 11/14/18 22:48 Cholesterol 191 mg/dL (50-199) 11/14/18 22:48 124 mg/dL (50-130) 11/14/18 22:48 77 mg/dL (40-59) H 11/14/18 22:48 2.48 % 11/14/18 22:48 Blood Type A POSITIVE 11/14/18 22:48 Antibody Screen Negative 11/14/18 22:48 Active Medications - Current Medications Current Medications: Generic Name Dose Route Start Last Admin Trade Name Freq PRN Reason Stop Dose Admin Acetaminophen 650 mg 11/14/18 21:40 Tylenol PO Q4H PRN Pain MILD(1-3)/Fever >100.5/PARR Aspirin 325 mg 11/15/18 10:00 11/16/18 09:51 Ecotrin PO 325 mg QDAY MARIELY Administration Atorvastatin Calcium 40 mg 11/14/18 22:00 11/15/18 21:04 Lipitor PO 40 mg QHS MARIELY Administration Clopidogrel Bisulfate 75 mg 11/15/18 10:00 11/16/18 09:51 Plavix PO 75 mg QDAY MARIELY Administration Dextrose 0 ml 11/15/18 05:22 D50w (25gm) Syringe IV PRN PRN Hypoglycemia Digoxin 0.125 mg 11/15/18 17:00 11/15/18 17:37 Lanoxin PO 0.125 mg DAILY@1700 MARIELY Administration Hydromorphone HCl 1 mg 11/14/18 21:40 11/16/18 10:15 Dilaudid IV 1 mg Q3H PRN Administration Pain , Severe (7-10) Norepinephrine 4 mg in 250 mls @ 18.75 mls/hr 11/14/18 22:00 11/16/18 11:15 Levophed Drip 4 Mg/Ns 250 Ml IV 16 mcg/min TITR MARIELY 60 mls/hr Titration Protocol 5 MCG/MIN Sodium Chloride 1,000 mls @ 100 mls/hr 11/14/18 23:45 11/15/18 16:27 Nacl 0.9% 1000 Ml IV 0 mls/hr DIRECT MARIELY Infusion Insulin Human Regular 100 100 mls @ 1 mls/hr 11/15/18 06:00 11/16/18 06:54 units/ Sodium Chloride IV 6 units/hr TITR MARIELY 6 mls/hr Titration Protocol 1 UNITS/HR Heparin Sodium/Sodium Chloride 25,000 unit in 500 mls @ 20 mls/hr 11/15/18 06:00 11/16/18 09:30 Heparin/ 0.45% Nacl-25,000 Unit/500 Ml IV 600 units/hr TITRATE MARIELY 12 mls/hr Titration Protocol 1,000 UNITS/HR Potassium Chloride/Dextrose/Sod Cl 20 meq in 1,000 mls @ 125 mls/hr 11/15/18 17:00 11/16/18 09:00 D5w/0.45% Nacl/Kcl 20 Meq IV 125 mls/hr DIRECT MARIELY Administration Heparin Sodium (Porcine) 1,000 501 mls @ 0 mls/hr 11/16/18 09:30 11/16/18 09:54 unit/ Sodium Chloride IV 1 mls/hr DIRECT MARIELY Administration Per Protocol Metoprolol Tartrate 2.5 mg 11/14/18 21:52 Lopressor IV Q4H PRN HR >130 Ondansetron HCl 4 mg 11/14/18 21:40 11/15/18 21:22 Zofran IV 4 mg Q8H PRN Administration Nausea And Vomiting Oxycodone/Acetaminophen 1 tab 11/14/18 21:40 Percocet 5/325 PO Q6H PRN Pain, Moderate (4-6) Pantoprazole Sodium 40 mg 11/14/18 22:00 11/16/18 09:51 Protonix PO 40 mg QDAY MARIELY Administration Sodium Chloride 10 ml 11/14/18 22:00 11/15/18 21:06 Sodium Chloride Flush Syringe 10 Ml IV 10 ml BID MARIELY Administration Sodium Chloride 10 ml 11/14/18 21:40 Sodium Chloride Flush Syringe 10 Ml IV PRN PRN LINE FLUSH
--- NOTE | 2018-11-16 11:46 | Progress Note ---
Assessment and Plan 68 y/o female with STEMI and diabetic ketoacidosis from hyperglycemia. 1. Calculated total insulin in the last 24 hours and it is greater than 200. By math, should get Lantus 60 but since patient is not eating normally will only give 40 starting tonight. Have ordered high dose sliding scale and continue FSBS q6hour. Will stop insulin drip. Will give 10 units of regular insulin now. 2. Spoke with cards in regards to BP and balloon pump. No boluses for now, only maintenance fluids of normal saline at 100. Echo is still pending. Continue levophed to obtain maps greater than 60-65 pending EF 3. Guarded prognosis. CCT 31 minutes. Subjective Date of service: 11/16/18 Interval history: Overnight, patient complained of abdominal fullness and inability to void. Guidry placed with 200 out but none since then. Worsening renal function. SERA VALLEJO ordered CT ABD/PELVIS but unable to travel while on balloon pump. Sats still in the high 90's on 2 liters. Objective - Constitutional Vitals: Vital Signs - 12hr 11/15/18 11/15/18 11/16/18 23:45 23:48 00:00 Temperature 98.6 F 98.6 F Pulse Rate 98 H 99 H Respiratory 40 H 39 H Rate Blood Pressure 101/71 112/50 O2 Sat by Pulse 92 99 Oximetry 11/16/18 11/16/18 11/16/18 00:07 00:15 00:30 Temperature Pulse Rate 99 H 93 H 96 H Respiratory 40 H 33 H 27 H Rate Blood Pressure 92/56 110/58 109/60 O2 Sat by Pulse 98 98 99 Oximetry 11/16/18 11/16/18 11/16/18 00:45 01:00 01:15 Temperature Pulse Rate 99 H 96 H 103 H Respiratory 44 H 42 H 47 H Rate Blood Pressure 109/60 110/81 100/62 O2 Sat by Pulse 99 100 98 Oximetry 11/16/18 11/16/18 11/16/18 01:30 01:45 02:00 Temperature Pulse Rate 96 H 89 95 H Respiratory 36 H 31 H 41 H Rate Blood Pressure 104/53 116/51 108/50 O2 Sat by Pulse 97 97 Oximetry 11/16/18 11/16/18 11/16/18 02:15 02:30 02:45 Temperature Pulse Rate 95 H 99 H 92 H Respiratory 35 H 33 H Rate Blood Pressure 97/51 98/51 98/51 O2 Sat by Pulse 97 99 97 Oximetry 11/16/18 11/16/18 11/16/18 03:00 03:15 03:31 Temperature Pulse Rate 98 H 99 H 95 H Respiratory 30 H 42 H 36 H Rate Blood Pressure 95/73 101/59 108/48 O2 Sat by Pulse 98 98 98 Oximetry 11/16/18 11/16/18 11/16/18 03:45 04:00 04:01 Temperature 99.0 F Pulse Rate 99 H 90 87 Respiratory 39 H 26 H 27 H Rate Blood Pressure 99/58 102/45 O2 Sat by Pulse 98 99 94 Oximetry 11/16/18 11/16/18 11/16/18 04:15 04:30 04:45 Temperature Pulse Rate 91 H 97 H 97 H Respiratory 31 H 44 H 37 H Rate Blood Pressure 106/45 87/57 O2 Sat by Pulse 97 100 98 Oximetry 11/16/18 11/16/18 11/16/18 05:00 05:15 05:31 Temperature Pulse Rate 91 H 99 H 99 H Respiratory 33 H 40 H 20 Rate Blood Pressure 96/60 96/60 O2 Sat by Pulse 96 98 99 Oximetry 11/16/18 11/16/18 11/16/18 05:45 06:00 06:01 Temperature Pulse Rate 100 H 100 H 90 Respiratory 44 H 26 H 29 H Rate Blood Pressure 101/59 100/49 100/49 O2 Sat by Pulse 100 100 Oximetry 11/16/18 11/16/18 11/16/18 06:15 06:31 06:45 Temperature Pulse Rate 97 H 107 H 99 H Respiratory 35 H 21 40 H Rate Blood Pressure 87/58 92/49 94/46 O2 Sat by Pulse 100 99 99 Oximetry 11/16/18 11/16/18 11/16/18 07:00 07:01 07:15 Temperature Pulse Rate 90 102 H 95 H Respiratory 30 H 33 H 36 H Rate Blood Pressure 120/56 99/45 118/73 O2 Sat by Pulse 99 97 Oximetry 11/16/18 11/16/18 11/16/18 07:31 07:45 08:00 Temperature Pulse Rate 95 H 99 H 98 H Respiratory 40 H 38 H 39 H Rate Blood Pressure 118/62 123/64 125/66 O2 Sat by Pulse 91 97 98 Oximetry 11/16/18 11/16/18 11/16/18 08:15 08:31 08:45 Temperature Pulse Rate 102 H 101 H 99 H Respiratory 38 H 44 H 40 H Rate Blood Pressure 125/66 137/70 95/46 O2 Sat by Pulse 96 98 98 Oximetry 11/16/18 11/16/18 11/16/18 09:00 09:15 09:30 Temperature Pulse Rate 91 H 93 H 98 H Respiratory 21 48 H 38 H Rate Blood Pressure 101/43 108/53 104/54 O2 Sat by Pulse 97 97 Oximetry 11/16/18 11/16/18 11/16/18 09:45 10:00 10:15 Temperature Pulse Rate 91 H 99 H 99 H Respiratory 35 H 31 H 46 H Rate Blood Pressure 114/60 115/51 115/51 O2 Sat by Pulse 98 97 97 Oximetry 11/16/18 11/16/18 11/16/18 10:30 10:45 11:01 Temperature Pulse Rate 92 H 88 90 Respiratory 16 20 16 Rate Blood Pressure 102/52 102/52 108/36 O2 Sat by Pulse 96 97 98 Oximetry - Labs CBC & Chem 7: 11/16/18 04:03 11/16/18 10:30 Labs: Abnormal lab results 11/15/18 11/15/18 11/15/18 Range/Units 08:22 09:12 10:20 Hgb (10.1-14.3) gm/dl Hct (30.3-42.9) % Heparin Anti-Xa Level (0.3-0.7) U.I./ml Sodium (137-145) mmol/L Chloride (98-107) mmol/L Carbon Dioxide (22-30) mmol/L BUN (7-17) mg/dL Creatinine (0.7-1.2) mg/dL Glucose (65-100) mg/dL POC Glucose > 500 H > 500 H 482 H (70-105) Calcium (8.4-10.2) mg/dL 11/15/18 11/15/18 11/15/18 Range/Units 10:22 11:14 12:14 Hgb (10.1-14.3) gm/dl Hct (30.3-42.9) % Heparin Anti-Xa Level (0.3-0.7) U.I./ml Sodium (137-145) mmol/L Chloride (98-107) mmol/L Carbon Dioxide (22-30) mmol/L BUN (7-17) mg/dL Creatinine 2.7 H D (0.7-1.2) mg/dL Glucose 507 H* (65-100) mg/dL POC Glucose 416 H 378 H (70-105) Calcium (8.4-10.2) mg/dL 11/15/18 11/15/18 11/15/18 Range/Units 13:10 14:14 14:25 Hgb (10.1-14.3) gm/dl Hct (30.3-42.9) % Heparin Anti-Xa Level (0.3-0.7) U.I./ml Sodium 136 L (137-145) mmol/L Chloride (98-107) mmol/L Carbon Dioxide 17 L (22-30) mmol/L BUN 34 H (7-17) mg/dL Creatinine 2.8 H (0.7-1.2) mg/dL Glucose 249 H (65-100) mg/dL POC Glucose 314 H 268 H (70-105) Calcium (8.4-10.2) mg/dL 11/15/18 11/15/18 11/15/18 Range/Units 15:21 16:20 17:21 Hgb (10.1-14.3) gm/dl Hct (30.3-42.9) % Heparin Anti-Xa Level (0.3-0.7) U.I./ml Sodium (137-145) mmol/L Chloride (98-107) mmol/L Carbon Dioxide (22-30) mmol/L BUN (7-17) mg/dL Creatinine (0.7-1.2) mg/dL Glucose (65-100) mg/dL POC Glucose 221 H 188 H 174 H (70-105) Calcium (8.4-10.2) mg/dL 11/15/18 11/15/18 11/15/18 Range/Units 17:31 18:22 19:07 Hgb (10.1-14.3) gm/dl Hct (30.3-42.9) % Heparin Anti-Xa Level 0.18 L (0.3-0.7) U.I./ml Sodium (137-145) mmol/L Chloride (98-107) mmol/L Carbon Dioxide (22-30) mmol/L BUN (7-17) mg/dL Creatinine (0.7-1.2) mg/dL Glucose (65-100) mg/dL POC Glucose 165 H 162 H (70-105) Calcium (8.4-10.2) mg/dL 11/15/18 11/15/18 11/15/18 Range/Units 20:12 20:44 21:08 Hgb (10.1-14.3) gm/dl Hct (30.3-42.9) % Heparin Anti-Xa Level (0.3-0.7) U.I./ml Sodium 135 L (137-145) mmol/L Chloride (98-107) mmol/L Carbon Dioxide 17 L (22-30) mmol/L BUN 36 H (7-17) mg/dL Creatinine 3.2 H (0.7-1.2) mg/dL Glucose 158 H (65-100) mg/dL POC Glucose 143 H 151 H (70-105) Calcium (8.4-10.2) mg/dL 11/15/18 11/15/18 11/16/18 Range/Units 22:06 23:07 00:05 Hgb (10.1-14.3) gm/dl Hct (30.3-42.9) % Heparin Anti-Xa Level (0.3-0.7) U.I./ml Sodium (137-145) mmol/L Chloride (98-107) mmol/L Carbon Dioxide (22-30) mmol/L BUN (7-17) mg/dL Creatinine (0.7-1.2) mg/dL Glucose (65-100) mg/dL POC Glucose 147 H 150 H 157 H (70-105) Calcium (8.4-10.2) mg/dL 11/16/18 11/16/18 11/16/18 Range/Units 01:09 02:17 03:17 Hgb (10.1-14.3) gm/dl Hct (30.3-42.9) % Heparin Anti-Xa Level (0.3-0.7) U.I./ml Sodium (137-145) mmol/L Chloride (98-107) mmol/L Carbon Dioxide (22-30) mmol/L BUN (7-17) mg/dL Creatinine (0.7-1.2) mg/dL Glucose (65-100) mg/dL POC Glucose 143 H 173 H 145 H (70-105) Calcium (8.4-10.2) mg/dL 11/16/18 11/16/18 11/16/18 Range/Units 04:03 04:03 04:18 Hgb 10.0 L (10.1-14.3) gm/dl Hct 30.1 L (30.3-42.9) % Heparin Anti-Xa Level (0.3-0.7) U.I./ml Sodium (137-145) mmol/L Chloride (98-107) mmol/L Carbon Dioxide 17 L (22-30) mmol/L BUN 38 H (7-17) mg/dL Creatinine 3.8 H (0.7-1.2) mg/dL Glucose 147 H (65-100) mg/dL POC Glucose 131 H (70-105) Calcium (8.4-10.2) mg/dL 11/16/18 11/16/18 11/16/18 Range/Units 05:12 06:04 06:59 Hgb (10.1-14.3) gm/dl Hct (30.3-42.9) % Heparin Anti-Xa Level (0.3-0.7) U.I./ml Sodium (137-145) mmol/L Chloride (98-107) mmol/L Carbon Dioxide (22-30) mmol/L BUN (7-17) mg/dL Creatinine (0.7-1.2) mg/dL Glucose (65-100) mg/dL POC Glucose 139 H 162 H 151 H (70-105) Calcium (8.4-10.2) mg/dL 11/16/18 Range/Units 10:30 Hgb (10.1-14.3) gm/dl Hct (30.3-42.9) % Heparin Anti-Xa Level (0.3-0.7) U.I./ml Sodium (137-145) mmol/L Chloride 107.6 H (98-107) mmol/L Carbon Dioxide 15 L (22-30) mmol/L BUN 38 H (7-17) mg/dL Creatinine 3.9 H (0.7-1.2) mg/dL Glucose 181 H (65-100) mg/dL POC Glucose (70-105) Calcium 8.2 L (8.4-10.2) mg/dL Medications & Allergies - Medications Allergies/Adverse Reactions: Allergies No Known Allergies Allergy (Unverified 11/14/18 20:53) Home Medications: Home Medications Medication Instructions Recorded Confirmed Last Taken Type Aspirin [Aspirin BABY CHEW TAB] 81 mg PO QDAY 11/15/18 11/15/18 Unknown History Dapagliflozin Propanediol [Farxiga] 10 mg PO DAILY 11/15/18 11/15/18 Unknown History Glimepiride [Amaryl] 2 mg PO DAILY 11/15/18 11/15/18 Unknown History Metformin HCl [metFORMIN] 1,000 tab PO BID 11/15/18 11/15/18 11/14/18 17:00 History Olmesartan (Nf) [Benicar (Nf)] 40 mg PO QDAY 11/15/18 11/15/18 Unknown History Sitagliptin Phosphate [Januvia] 100 mg PO DAILY 11/15/18 11/15/18 Unknown History amLODIPine [Norvasc] 10 mg PO DAILY 11/15/18 11/15/18 Unknown History hydroCHLOROthiazide [Hctz] 12.5 mg PO QDAY 11/15/18 11/15/18 Unknown History Active Medications: Generic Name Dose Route Start Last Admin Trade Name Freq PRN Reason Stop Dose Admin Acetaminophen 650 mg 11/14/18 21:40 Tylenol PO Q4H PRN Pain MILD(1-3)/Fever >100.5/PARR Aspirin 325 mg 11/15/18 10:00 11/16/18 09:51 Ecotrin PO 325 mg QDAY MARIELY Administration Atorvastatin Calcium 40 mg 11/14/18 22:00 11/15/18 21:04 Lipitor PO 40 mg QHS MARIELY Administration Clopidogrel Bisulfate 75 mg 11/15/18 10:00 11/16/18 09:51 Plavix PO 75 mg QDAY MARIELY Administration Dextrose 0 ml 11/15/18 05:22 D50w (25gm) Syringe IV PRN PRN Hypoglycemia Dextrose 50 ml 11/16/18 11:37 D50w (25gm) Syringe IV PRN PRN Hypoglycemia Digoxin 0.125 mg 11/15/18 17:00 11/15/18 17:37 Lanoxin PO 0.125 mg DAILY@1700 MARIELY Administration Hydromorphone HCl 1 mg 11/14/18 21:40 11/16/18 10:15 Dilaudid IV 1 mg Q3H PRN Administration Pain , Severe (7-10) Norepinephrine 4 mg in 250 mls @ 18.75 mls/hr 11/14/18 22:00 11/16/18 11:15 Levophed Drip 4 Mg/Ns 250 Ml IV 16 mcg/min TITR MARIELY 60 mls/hr Titration Protocol 5 MCG/MIN Sodium Chloride 1,000 mls @ 100 mls/hr 11/14/18 23:45 11/15/18 16:27 Nacl 0.9% 1000 Ml IV 0 mls/hr DIRECT MARIELY Infusion Insulin Human Regular 100 100 mls @ 1 mls/hr 11/15/18 06:00 11/16/18 06:54 units/ Sodium Chloride IV 6 units/hr TITR MARIELY 6 mls/hr Titration Protocol 1 UNITS/HR Heparin Sodium/Sodium Chloride 25,000 unit in 500 mls @ 20 mls/hr 11/15/18 06:00 11/16/18 09:30 Heparin/ 0.45% Nacl-25,000 Unit/500 Ml IV 600 units/hr TITRATE MARIELY 12 mls/hr Titration Protocol 1,000 UNITS/HR Potassium Chloride/Dextrose/Sod Cl 20 meq in 1,000 mls @ 125 mls/hr 11/15/18 17:00 11/16/18 09:00 D5w/0.45% Nacl/Kcl 20 Meq IV 125 mls/hr DIRECT MARIELY Administration Heparin Sodium (Porcine) 1,000 501 mls @ 0 mls/hr 11/16/18 09:30 11/16/18 09:54 unit/ Sodium Chloride IV 1 mls/hr DIRECT MARIELY Administration Per Protocol Insulin Glargine 40 units 11/16/18 22:00 Lantus SUB-Q QHS MARIELY Insulin Human Lispro 0 unit 11/16/18 12:00 Humalog SUB-Q Q6HR [facility] Protocol Metoprolol Tartrate 2.5 mg 11/14/18 21:52 Lopressor IV Q4H PRN HR >130 Ondansetron HCl 4 mg 11/14/18 21:40 11/15/18 21:22 Zofran IV 4 mg Q8H PRN Administration Nausea And Vomiting Oxycodone/Acetaminophen 1 tab 11/14/18 21:40 Percocet 5/325 PO Q6H PRN Pain, Moderate (4-6) Pantoprazole Sodium 40 mg 11/14/18 22:00 11/16/18 09:51 Protonix PO 40 mg QDAY MARIELY Administration Sodium Chloride 10 ml 11/14/18 22:00 11/15/18 21:06 Sodium Chloride Flush Syringe 10 Ml IV 10 ml BID MARIELY Administration Sodium Chloride 10 ml 11/14/18 21:40 Sodium Chloride Flush Syringe 10 Ml IV PRN PRN LINE FLUSH
[2018-11-16] MEDS: LEVOPHED DRIP 4 MG/NS 250 ML 4 MG/250 ML BAG IV SCH ×6 (12:00→22:23)
[2018-11-16] MEDS ORDERED: HumuLIN R IV ONE (12:46)
[2018-11-16] MEDS: HumaLOG SUB-Q SCH ×3 (12:49→23:54)
[2018-11-16] MEDS: SODIUM CHLORIDE FLUSH SYRINGE 10 ML IV SCH (12:59)
[2018-11-16] MEDS ORDERED: NACL 0.9% 1000 ML 1,000 ML IV SCH (14:00)
--- NOTE | 2018-11-16 14:02 | Progress Note ---
Assessment and Plan Acute inferior wall ST elevation myocardial infarction s/p PCI of the right coronary artery using drug eluting stents, to the midright coronary artery. s/p export catheter thrombectomy s/p placement of intra-aortic balloon pump and pressors for hemodynamic support. narrow complex tachycardia vesrus atrial fibrillation during photo lab technician course, likely exacerbated by the ongoing dopamine infusion. Diabetes -poorly controlled Echocardiogram reports a dilated RV. Normal left ventricular systolic function, ejection fraction 50-55%. Subjective Date of service: 11/16/18 Interval history: Patient is resting in bed. She denies chest pain and shortness of breath. IABP remains in place. Restarted on pressors for support. Creatinine continues to rise, today 3.9. Objective Vital Signs Temp Pulse Resp BP Pulse Ox 11/16/18 13:15 89 16 105/41 99 11/16/18 13:01 96 H 22 53/37 98 11/16/18 12:45 102 H 28 H 104/51 98 11/16/18 12:31 84 15 104/51 99 11/16/18 12:15 89 17 116/53 11/16/18 12:01 96 H 24 116/53 100 11/16/18 12:00 98.7 F 11/16/18 11:45 88 15 107/42 100 11/16/18 11:30 84 25 H 107/42 97 11/16/18 11:15 92 H 22 114/38 97 11/16/18 11:01 90 16 108/36 98 11/16/18 11:00 90 28 H 99 11/16/18 10:45 88 20 102/52 97 11/16/18 10:30 92 H 16 102/52 96 11/16/18 10:15 99 H 46 H 115/51 97 11/16/18 10:00 99 H 31 H 115/51 97 11/16/18 09:45 91 H 35 H 114/60 98 11/16/18 09:30 98 H 38 H 104/54 97 11/16/18 09:15 93 H 48 H 108/53 11/16/18 09:00 93 H 30 H 101/43 96 11/16/18 08:45 99 H 40 H 95/46 98 11/16/18 08:31 101 H 44 H 137/70 98 11/16/18 08:15 102 H 38 H 125/66 96 11/16/18 08:00 98 F 98 H 33 H 125/66 98 11/16/18 07:45 99 H 38 H 123/64 97 11/16/18 07:31 95 H 40 H 118/62 91 11/16/18 07:15 95 H 36 H 118/73 11/16/18 07:01 102 H 33 H 99/45 97 11/16/18 07:00 90 30 H 120/56 99 11/16/18 06:45 99 H 40 H 94/46 99 11/16/18 06:31 107 H 21 92/49 99 11/16/18 06:15 97 H 35 H 87/58 100 11/16/18 06:01 90 29 H 100/49 100 11/16/18 06:00 100 H 26 H 100/49 100 11/16/18 05:45 100 H 44 H 101/59 11/16/18 05:31 99 H 20 99 11/16/18 05:15 99 H 40 H 96/60 98 11/16/18 05:00 91 H 33 H 96/60 96 11/16/18 04:45 97 H 37 H 87/57 98 11/16/18 04:30 97 H 44 H 100 11/16/18 04:15 91 H 31 H 106/45 97 11/16/18 04:01 87 27 H 94 11/16/18 04:00 99.0 F 90 26 H 102/45 99 11/16/18 03:45 99 H 39 H 99/58 98 11/16/18 03:31 95 H 36 H 108/48 98 11/16/18 03:15 99 H 42 H 101/59 98 11/16/18 03:00 98 H 30 H 95/73 98 11/16/18 02:45 92 H 33 H 98/51 97 11/16/18 02:30 99 H 98/51 99 11/16/18 02:15 95 H 35 H 97/51 97 11/16/18 02:00 95 H 41 H 108/50 97 11/16/18 01:45 89 31 H 116/51 11/16/18 01:30 96 H 36 H 104/53 97 11/16/18 01:15 103 H 47 H 100/62 98 11/16/18 01:00 96 H 42 H 110/81 100 11/16/18 00:45 99 H 44 H 109/60 99 11/16/18 00:30 96 H 27 H 109/60 99 11/16/18 00:15 93 H 33 H 110/58 98 11/16/18 00:07 99 H 40 H 92/56 98 11/16/18 00:00 98.6 F 99 H 39 H 112/50 99 11/15/18 23:48 98.6 F 11/15/18 23:45 98 H 40 H 101/71 92 11/15/18 23:30 103 H 41 H 101/71 97 11/15/18 23:15 100 H 36 H 123/46 97 11/15/18 23:01 94 H 40 H 101/56 100 11/15/18 23:00 96 H 28 H 134/46 99 11/15/18 22:45 94 H 35 H 100/62 96 11/15/18 22:30 96 H 36 H 100/62 98 11/15/18 22:15 91 H 35 H 104/55 97 11/15/18 22:01 88 28 H 104/55 99 11/15/18 22:00 94 H 30 H 104/55 98 11/15/18 21:45 89 35 H 90/59 100 11/15/18 21:30 93 H 38 H 99 11/15/18 21:15 90 32 H 94/49 98 11/15/18 21:01 95 H 36 H 115/55 99 11/15/18 21:00 90 24 101/46 99 11/15/18 20:45 96 H 115/55 99 11/15/18 20:31 97 H 38 H 98 11/15/18 20:19 99 11/15/18 20:15 94 H 112/59 98 11/15/18 20:01 91 H 111/66 98 11/15/18 20:00 97.9 F 97 H 28 H 101/46 99 11/15/18 19:45 93 H 22 111/66 95 11/15/18 19:30 97 H 32 H 102/64 98 11/15/18 19:15 96 H 26 H 116/56 11/15/18 19:00 93 H 30 H 124/47 97 11/15/18 18:45 88 35 H 120/57 99 11/15/18 18:30 94 H 35 H 113/57 98 11/15/18 18:15 92 H 40 H 115/57 99 11/15/18 18:01 94 H 43 H 124/55 98 11/15/18 18:00 93 H 28 H 115/57 100 11/15/18 17:45 96 H 43 H 136/60 99 11/15/18 17:37 96 H 113/59 11/15/18 17:31 94 H 35 H 113/59 97 11/15/18 17:15 95 H 42 H 136/65 97 11/15/18 17:00 92 H 36 H 132/53 99 11/15/18 16:45 91 H 34 H 128/62 97 11/15/18 16:30 92 H 8 L 126/54 98 11/15/18 16:15 89 29 H 126/66 11/15/18 16:00 97.6 F 85 25 H 116/61 98 11/15/18 15:45 88 31 H 132/65 97 11/15/18 15:31 95 H 18 44/21 97 11/15/18 15:15 89 37 H 103/60 11/15/18 15:00 90 34 H 112/56 96 11/15/18 14:45 90 43 H 117/57 11/15/18 14:30 90 36 H 121/54 97 11/15/18 14:15 93 H 42 H 123/63 11/15/18 14:00 86 31 H 111/51 98 - Physical Examination General: No Apparent Distress HEENT: Positive: PERRL Cardiac: Positive: Reg Rate and Rhythm Lungs: Positive: Decreased Breath Sounds Neuro: Positive: Grossly Intact Extremities: Absent: edema - Labs and Meds CBC 11/15/18 11/16/18 Range/Units 17:31 04:03 Hgb 11.0 10.0 L (10.1-14.3) gm/dl Hct 32.8 30.1 L (30.3-42.9) % Plt Count 261 (140-440) K/mm3 Comprehensive Metabolic Panel 11/15/18 11/15/18 11/16/18 Range/Units 14:25 20:44 04:03 Sodium 136 L 135 L 137 (137-145) mmol/L Potassium 4.0 4.3 4.6 (3.6-5.0) mmol/L Chloride 101.3 102.6 104.2 (98-107) mmol/L Carbon Dioxide 17 L 17 L 17 L (22-30) mmol/L BUN 34 H 36 H 38 H (7-17) mg/dL Creatinine 2.8 H 3.2 H 3.8 H (0.7-1.2) mg/dL Glucose 249 H 158 H 147 H (65-100) mg/dL Calcium 9.2 8.9 9.0 (8.4-10.2) mg/dL 11/16/18 Range/Units 10:30 Sodium 137 (137-145) mmol/L Potassium 4.6 (3.6-5.0) mmol/L Chloride 107.6 H (98-107) mmol/L Carbon Dioxide 15 L (22-30) mmol/L BUN 38 H (7-17) mg/dL Creatinine 3.9 H (0.7-1.2) mg/dL Glucose 181 H (65-100) mg/dL Calcium 8.2 L (8.4-10.2) mg/dL
[2018-11-16] MEDS ORDERED: NACL 0.9% 500 ML 500 ML IV ONE (14:05)
--- NOTE | 2018-11-16 14:27 | XRay Report ---
CHEST 1 VIEW INDICATION: heart failure, ballon pump position. COMPARISON: 11/15/2008 FINDINGS: Support devices: The balloon pump appears to terminate in the descending thoracic aorta at the level of the left hilum. Heart: Stable mild cardiomegaly. Lungs/Pleura: Stable mild pulmonary venous congestion. There is poor visualization of the left hemidi aphragm on today's exam suggesting left basilar atelectasis or small effusion. The remainder of the l ungs are clear. No pneumothorax. Additional findings: None. IMPRESSION: Balloon pump as described. Stable mild cardiomegaly and pulmonary venous congestion. Minor left basi lar atelectasis versus small left pleural effusion. Signer Name: Darryn Amanda Jr, MD Signed: 11/16/2018 2:23 PM Workstation Name: [id number]
[2018-11-16] MEDS ORDERED: INTROPIN DRIP 800 MG/D5W 250 ML 800 MG/250 ML BAG IV ONE (14:48)
[2018-11-16] MEDS: INTROPIN DRIP 800 MG/D5W 250 ML 800 MG/250 ML BAG IV SCH (14:55)
[2018-11-16] MEDS: LANOXIN PO SCH (17:32)
--- NOTE | 2018-11-16 17:49 | Consultation ---
History of Present Illness - Reason for Consult Consult date: 11/16/18 acute renal failure - History of Present Illness Mrs. Field is a 68yo with hx of type II DM who was admitted after presenting to the ED with chest pain and EKG c/w acute inferior STEMI. Patient is s/p emergent LHC which was notable for complete occlusion of dominant RCA. PCI w/ stent to mid RCA. Per cardiology, there was extensive thrombus within the vessel which required export catheter thrombectomy. During LHC, patient developed a narrow complex tachycardia. Intra aortic balloon pump was inserted due to hemodyncamic instabiliy. Since admission, patient's renal function has declined. At admission, labs were notable for SCr 1.6mg/dL which has gradually increased to 3.9mg/dL today. In addition, patient's UOP has also declined. Nephrology consultation has been requested to assist in patient's management. Currently, IABP remains in place. She also requires pressors - maxed on Levophed, Dopamine has been added. Oxygenation remains stable on 2L NC. She denies chest pain, difficulty breathing. Past History Past Medical History: CAD, diabetes Family history: no significant family history Medications and Allergies Allergies Allergy/AdvReac Type Severity Reaction Status Date / Time No Known Allergies Allergy Unverified 11/14/18 20:53 Home Medications Medication Instructions Recorded Confirmed Last Taken Type Aspirin [Aspirin BABY CHEW TAB] 81 mg PO QDAY 11/15/18 11/15/18 Unknown History Dapagliflozin Propanediol [Farxiga] 10 mg PO DAILY 11/15/18 11/15/18 Unknown History Glimepiride [Amaryl] 2 mg PO DAILY 11/15/18 11/15/18 Unknown History Metformin HCl [metFORMIN] 1,000 tab PO BID 11/15/18 11/15/18 11/14/18 17:00 History Olmesartan (Nf) [Benicar (Nf)] 40 mg PO QDAY 11/15/18 11/15/18 Unknown History Sitagliptin Phosphate [Januvia] 100 mg PO DAILY 11/15/18 11/15/18 Unknown History amLODIPine [Norvasc] 10 mg PO DAILY 11/15/18 11/15/18 Unknown History hydroCHLOROthiazide [Hctz] 12.5 mg PO QDAY 11/15/18 11/15/18 Unknown History Active Meds: Active Medications Acetaminophen (Tylenol) 650 mg PO Q4H PRN PRN Reason: Pain MILD(1-3)/Fever >100.5/PARR Aspirin (Ecotrin) 325 mg PO QDAY [facility] Last Admin: 11/16/18 09:51 Dose: 325 mg Documented by: Atorvastatin Calcium (Lipitor) 40 mg PO QHS [facility] Last Admin: 11/15/18 21:04 Dose: 40 mg Documented by: Clopidogrel Bisulfate (Plavix) 75 mg PO QDAY [facility] Last Admin: 11/16/18 09:51 Dose: 75 mg Documented by: Dextrose (D50w (25gm) Syringe) 0 ml IV PRN PRN PRN Reason: Hypoglycemia Dextrose (D50w (25gm) Syringe) 50 ml IV PRN PRN PRN Reason: Hypoglycemia Digoxin (Lanoxin) 0.125 mg PO DAILY@1700 [facility] Last Admin: 11/15/18 17:37 Dose: 0.125 mg Documented by: Hydromorphone HCl (Dilaudid) 1 mg IV Q3H PRN PRN Reason: Pain , Severe (7-10) Last Admin: 11/16/18 10:15 Dose: 1 mg Documented by: Norepinephrine (Levophed Drip 4 Mg/Ns 250 Ml) 4 mg in 250 mls @ 18.75 mls/hr IV TITR [facility]; Protocol Last Admin: 11/16/18 16:07 Dose: 30 mcg/min, 112.5 mls/hr Documented by: Heparin Sodium/Sodium Chloride (Heparin/ 0.45% Nacl-25,000 Unit/500 Ml) 25,000 unit in 500 mls @ 20 mls/hr IV TITRATE [facility]; Protocol Last Titration: 11/16/18 09:30 Dose: 600 units/hr, 12 mls/hr Documented by: Heparin Sodium (Porcine) 1,000 (unit/ Sodium Chloride) 501 mls @ 0 mls/hr IV DIRECT [facility] Last Admin: 11/16/18 09:54 Dose: 1 mls/hr Documented by: Sodium Chloride (Nacl 0.9% 1000 Ml) 1,000 mls @ 125 mls/hr IV DIRECT [facility] Last Admin: 11/16/18 14:19 Dose: 125 mls/hr Documented by: Dopamine HCl/Dextrose (Intropin Drip 800 Mg/D5w 250 Ml) 800 mg in 250 mls @ 3.401 mls/hr IV TITR [facility]; Protocol Last Titration: 11/16/18 17:00 Dose: 6 mcg/kg/min, 10.204 mls/hr Documented by: Insulin Glargine (Lantus) 40 units SUB-Q QHS [facility] Insulin Human Lispro (Humalog) 0 unit SUB-Q Q6HR [facility]; Protocol Last Admin: 11/16/18 12:49 Dose: 6 unit Documented by: Metoprolol Tartrate (Lopressor) 2.5 mg IV Q4H PRN PRN Reason: HR >130 Ondansetron HCl (Zofran) 4 mg IV Q8H PRN PRN Reason: Nausea And Vomiting Last Admin: 11/15/18 21:22 Dose: 4 mg Documented by: Oxycodone/Acetaminophen (Percocet 5/325) 1 tab PO Q6H PRN PRN Reason: Pain, Moderate (4-6) Last Admin: 11/16/18 12:49 Dose: 1 tab Documented by: Pantoprazole Sodium (Protonix) 40 mg PO QDAY [facility] Last Admin: 11/16/18 09:51 Dose: 40 mg Documented by: Sodium Chloride (Sodium Chloride Flush Syringe 10 Ml) 10 ml IV BID [facility] Last Admin: 11/16/18 12:59 Dose: Not Given Documented by: Sodium Chloride (Sodium Chloride Flush Syringe 10 Ml) 10 ml IV PRN PRN PRN Reason: LINE FLUSH Review of Systems All systems: negative Exam - Vital Signs Vital signs: Vital Signs Temp Pulse Resp BP Pulse Ox 98.2 F 48 L 16 103/63 100 11/14/18 20:01 11/14/18 20:01 11/14/18 20:01 11/14/18 20:01 11/14/18 20:01 - General Appearance General appearance: well-developed, well-nourished EENT: ATNC Respiratory: Decreased Breath Sounds (clear anteriorly, diminshed at bases) Heart: tachycardia, S1S2 Gastrointestinal: Present: obese. Absent: tenderness, distended Integumentary: no rash, warm and dry Musculoskeletal: Present: other (no edema) Psychiatric: cooperative Results - Lab Results 11/16/18 04:03 11/16/18 10:30 Most recent lab results Calcium 8.2 mg/dL (8.4-10.2) L 11/16/18 10:30 Phosphorus 4.60 mg/dL (2.5-4.5) H 11/15/18 05:47 Magnesium 1.60 mg/dL (1.7-2.3) L 11/15/18 05:47 Assessment and Plan Impression: * Oliguric acute kidney injury secondary to ATN * Acute inferior STEMI --s/p Emergent LHC which was notable for complete occlusion of dominant RCA. PCI w/ stent to mid RCA (Nov 14) --TTE: Dilated RV. Normal left ventricular systolic function, ejection fraction 50-55% (Nov 14) * Cardiogenic shock * Metabolic acidosis * Type II diabetes mellitus * Leukocytosis, likely reactive * Anemia Plan: * Renal prognosis is guarded. No emergent need for renal replacement therapy at this time. Would like to stabilize blood pressure w/ IVF and pressors. Daughter is at bedside. Discussed likelihood of patient requiring hemodialysis if there is no evidence of improvement by AM; daughter voiced understanding and consents to dialysis if needed * Have consulted vascular surgery in anticipation of need for vascath for HD * Cardiology recommendations reviewed * Pressors prn to maintain MAP>65 * Change IVF from NS to 1/2 NS w/ bicarb * Glycemic control per primary team/CCM * Strict monitoring of I/O * Dose medications for renal function
[2018-11-16] MEDS: DOBUTREX DRIP 500MG/D5W 250ML 500 MG/250 ML BAG IV SCH (20:06)
[2018-11-16] MEDS: NACL 0.45% 1000 ML 1,000 ML with SODIUM BICARBONATE 75 MEQ IV SCH (20:51)
[2018-11-16] MEDS ORDERED: LANTUS SUB-Q SCH (22:00)
[2018-11-17] MEDS: LEVOPHED DRIP 4 MG/NS 250 ML 4 MG/250 ML BAG IV SCH ×7 (00:42→16:25)
[2018-11-17] MEDS: ZOFRAN IV PRN ×2 (03:58→10:49)
[2018-11-17 04:37] LABS: Calcium 8.2 mg/dL (8.4-10.2)
[2018-11-17] MEDS: NACL 0.45% 1000 ML 1,000 ML with SODIUM BICARBONATE 75 MEQ IV SCH ×2 (05:25→15:21)
[2018-11-17] MEDS: SODIUM CHLORIDE FLUSH SYRINGE 10 ML IV SCH ×3 (05:35→09:36)
[2018-11-17] MEDS: HumaLOG SUB-Q SCH ×2 (05:42→11:55)
[2018-11-17] MEDS: PROTONIX PO SCH (09:32)
[2018-11-17] MEDS: PLAVIX PO SCH (09:35)
--- NOTE | 2018-11-17 09:47 | Progress Note ---
Assessment and Plan Acute inferior wall ST elevation myocardial infarction s/p PCI of the right coronary artery using drug eluting stents, to the mid right coronary artery. s/p export catheter thrombectomy s/p placement of intra-aortic balloon pump and pressors for hemodynamic support. 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 Coronary artery disease Residual 70-75% LAD stenosis Refractory hypotension most likely due to RV infarct On multiple pressors and dobutamine Acute renal failure + I/Os with developing pulmonary edema on CXR Hyperkalemia Leukocytosis Diabetes -poorly controlled Echocardiogram reports a dilated RV. Normal left ventricular systolic function, ejection fraction 50-55%. Recommendations: Discussed with Dr Romero over the phone. Patient will benefit from transfer to a tertiary care facility for mechanical circulatory support and initiation of CRRT Dr Romero will try to arrange transfer. Subjective Date of service: 11/17/18 Principal diagnosis: STEMI Interval history: patient is lying in bed flat. Tele is showing SR. IABP in place. Objective Vital Signs Temp Pulse Resp BP Pulse Ox 11/17/18 09:15 106 H 26 H 106/73 99 11/17/18 09:00 98.1 F 109 H 24 106/73 100 11/17/18 08:45 115 H 28 H 104/64 99 11/17/18 08:32 100 11/17/18 08:31 111 H 19 104/64 99 11/17/18 08:15 111 H 31 H 104/64 99 11/17/18 08:00 98.7 F 111 H 20 104/64 100 11/17/18 07:45 103 H 19 99/51 100 11/17/18 07:31 110 H 17 99/51 100 11/17/18 07:15 115 H 19 99/51 100 11/17/18 07:01 110 H 32 H 99/51 97 11/17/18 07:00 98.3 F 130 H 20 99/51 99 11/17/18 06:45 113 H 17 124/64 98 11/17/18 06:31 112 H 18 124/64 98 11/17/18 06:15 115 H 22 124/64 99 11/17/18 06:00 97.9 F 115 H 19 124/64 99 11/17/18 05:45 114 H 22 112/59 99 11/17/18 05:31 104 H 16 112/59 99 11/17/18 05:15 105 H 18 112/59 99 11/17/18 05:00 98.6 F 113 H 21 112/59 99 11/17/18 04:45 112 H 22 112/58 98 11/17/18 04:31 114 H 21 112/58 99 11/17/18 04:15 114 H 31 H 112/58 98 11/17/18 04:01 114 H 31 H 112/58 97 11/17/18 04:00 98.6 F 113 H 23 112/58 98 11/17/18 03:45 112 H 28 H 114/68 100 11/17/18 03:31 112 H 17 114/68 100 11/17/18 03:21 98.6 F 11/17/18 03:15 115 H 28 H 114/68 99 11/17/18 03:00 98.6 F 112 H 24 114/68 98 11/17/18 02:45 114 H 22 112/64 99 11/17/18 02:31 115 H 22 112/64 98 11/17/18 02:15 115 H 20 112/64 99 11/17/18 02:00 98.7 F 112 H 22 112/64 99 11/17/18 01:45 113 H 18 112/58 99 11/17/18 01:31 110 H 18 112/58 99 11/17/18 01:15 110 H 25 H 112/58 99 11/17/18 01:00 98.7 F 109 H 28 H 112/58 98 11/17/18 00:45 113 H 21 109/65 100 11/17/18 00:31 116 H 33 H 109/65 98 11/17/18 00:15 115 H 24 109/65 100 11/17/18 00:09 115 H 23 109/65 99 11/17/18 00:00 98.7 F 112 H 23 109/65 100 11/16/18 23:46 98.7 F 11/16/18 23:45 117 H 32 H 115/57 98 11/16/18 23:31 116 H 21 115/57 98 11/16/18 23:15 116 H 30 H 115/57 98 11/16/18 23:00 98.7 F 113 H 17 115/57 98 11/16/18 22:45 115 H 23 150/112 99 08/15/19 22:31 114 H 18 150/112 99 11/16/18 22:15 116 H 23 150/112 98 11/16/18 22:01 122 H 31 H 150/112 96 11/16/18 22:00 98.6 F 116 H 19 92/75 97 11/16/18 21:45 121 H 25 H 136/89 98 11/16/18 21:31 117 H 25 H 136/89 97 11/16/18 21:15 114 H 20 136/89 97 11/16/18 21:00 98.7 F 83 34 H 136/89 100 11/16/18 20:45 139 H 19 88/73 97 11/16/18 20:31 107 H 18 124/61 98 11/16/18 20:15 122 H 17 124/61 97 11/16/18 20:05 100 11/16/18 20:00 98.6 F 91 H 20 124/61 96 11/16/18 19:45 94 H 25 H 127/64 98 11/16/18 19:31 89 21 127/64 98 11/16/18 19:15 89 20 127/64 98 11/16/18 19:00 98.6 F 90 19 127/64 97 11/16/18 18:45 93 H 19 129/51 98 11/16/18 18:31 97 H 25 H 129/51 97 11/16/18 18:15 97 H 20 113/53 97 11/16/18 18:01 103 H 20 113/53 11/16/18 18:00 97.8 F 97 H 20 129/51 96 11/16/18 17:45 102 H 20 113/53 96 11/16/18 17:32 119 H 118/94 11/16/18 17:31 120 H 20 113/53 96 11/16/18 17:15 114 H 23 113/53 96 11/16/18 17:01 126 H 41 H 113/53 94 11/16/18 17:00 97.8 F 119 H 41 H 113/53 94 11/16/18 16:45 132 H 25 H 129/38 93 11/16/18 16:31 121 H 29 H 129/38 95 11/16/18 16:15 120 H 24 129/38 95 11/16/18 16:01 119 H 16 129/38 94 11/16/18 16:00 97.8 F 120 H 41 H 129/68 96 11/16/18 15:45 120 H 14 94 11/16/18 15:31 122 H 17 93 11/16/18 15:15 120 H 17 95 11/16/18 15:00 89 16 111/30 97 11/16/18 14:45 93 H 17 111/30 99 11/16/18 14:31 92 H 28 H 111/30 100 11/16/18 14:15 88 16 129/27 100 11/16/18 14:01 86 18 129/27 100 11/16/18 14:00 95 H 20 111/30 96 11/16/18 13:45 91 H 19 122/32 100 11/16/18 13:30 88 23 120/42 99 11/16/18 13:15 89 16 105/41 99 11/16/18 13:01 96 H 22 53/37 98 11/16/18 13:00 86 16 122/32 99 11/16/18 12:45 102 H 28 H 104/51 98 11/16/18 12:31 84 15 104/51 99 11/16/18 12:15 89 17 116/53 11/16/18 12:01 96 H 24 116/53 100 11/16/18 12:00 98.7 F 88 24 99 11/16/18 11:45 88 15 107/42 100 11/16/18 11:30 84 25 H 107/42 97 11/16/18 11:15 92 H 22 114/38 97 11/16/18 11:01 90 16 108/36 98 11/16/18 11:00 90 28 H 99 11/16/18 10:45 88 20 102/52 97 11/16/18 10:30 92 H 16 102/52 99 11/16/18 10:15 99 H 46 H 115/51 97 11/16/18 10:00 99 H 31 H 115/51 97 11/16/18 09:45 91 H 35 H 114/60 98 - Physical Examination General: No Apparent Distress HEENT: Positive: PERRL Neck: Positive: neck supple Cardiac: Positive: Tachycardia Lungs: Positive: Decreased Breath Sounds Neuro: Positive: Grossly Intact Abdomen: Positive: Soft Extremities: Absent: edema - Labs and Meds Comprehensive Metabolic Panel 11/16/18 11/17/18 Range/Units 10:30 03:36 Sodium 137 134 L (137-145) mmol/L Potassium 4.6 5.5 H (3.6-5.0) mmol/L Chloride 107.6 H 103.1 (98-107) mmol/L Carbon Dioxide 15 L 16 L (22-30) mmol/L BUN 38 H 47 H (7-17) mg/dL Creatinine 3.9 H 3.8 H (0.7-1.2) mg/dL Glucose 181 H 349 H (65-100) mg/dL Calcium 8.2 L 8.2 L (8.4-10.2) mg/dL
--- NOTE | 2018-11-17 10:17 | Event Note ---
Date: 11/17/18 Patient with a history of acute LA and balloon pump. Currently on 2 pressors. The patient is volume overloaded and will require dialysis however, CRRT is not offered at this institution. The patient is being transferred to a tertiary care facility. We'll delay placement of a Vas-Cath at this time.
--- NOTE | 2018-11-17 10:21 | Discharge Summary ---
Providers - Providers Date of Admission: 11/14/18 21:40 Date of discharge: 11/17/18 Attending physician: KERRI DENNIS 11/14/18 Consult to Cardiac Rehabilitation [CONS] Routine Reason For Exam: post pci 11/14/18 21:47 Consult to Physician [CONS] Routine Comment: Consulting Provider: IRENE CAMPOS Physician Instructions: Reason For Exam: STEMI 11/14/18 21:48 Consult to Physician [CONS] Routine Comment: Consulting Provider: MADIE KING Physician Instructions: Reason For Exam: STEMI 11/16/18 11:27 Consult to Physician [CONS] Routine Comment: Consulting Provider: CARMITA PRICE Physician Instructions: Reason For Exam: ARF 11/16/18 18:32 Consult to Physician [CONS] Routine Comment: Consulting Provider: MENDOZA TORRES Physician Instructions: Reason For Exam: VASCATH PLACEMENT IN AM 11/17 [facility] Condition: Critical Hospital course: Patient is a 68 yo woman with a history of hypertension and DM type 2 who presented to [facility] ED with chest pains. She was found to have acute inferior wall STEMI and emergently sent for LHC. The LHC revealed complete occlusion of a large caliber, dominant right coronary artery. Primary angioplasty was successfully performed, with deployment of serial, 4.0-4.5 mm drug eluting stents, to the mid right coronary artery. There was extensive thrombus within the vessel which required export catheter thrombectomy. Patient was hemodynamic instability with hypotension so Dr. Campos inserted an intra-aortic balloon pump started vasopressors. During the LHC, she developed a narrow complex tachycardia, probably atrial fibrillation, likely exacerbated by the ongoing dopamine infusion. * 11/14/18 Echocardiogram reports a dilated RV. Normal left ventricular systolic function, ejection fraction 50-55%. Acute inferior wall ST elevation myocardial infarction s/p PCI of the right coronary artery using drug eluting stents, to the mid right coronary artery. s/p export catheter thrombectomy s/p placement of intra-aortic balloon pump and pressors for hemodynamic support. narrow complex tachycardia vesrus atrial fibrillation during laboratory phlebotomist course, likely exacerbated by the ongoing dopamine infusion. Cardiogenic Shock on Intra-aortic ballon pump on Vasopressor, Levophed at 28 mcg on Dopamine IV drip Coronary artery disease Residual 70-75% LAD stenosis medical management Refractory hypotension most likely due to RV infarct On multiple pressors and dobutamine Acute renal failure,worsening ATN, unclear if poa because no baseline Cr + I/Os with developing pulmonary edema on CXR Hyperkalemia Needs HD but bp too low, so transfer for CRRT Leukocytosis with SIRS with organ dysfunction, poa medical management Type 2 DM, poorly controlled with HONK s/p Insulin drip from admission and stopped on 11/16/18 11/14/18 A1C was 10.7 transition off to Lantus/managed by [facility], Dr. King Acute Diastolic not systolic heart failure suspected: medical management Hypomagnesemia replaced via IV Disposition: to [facility] for CRRT, accepted by Dr. Saurabh Byrd and Dr. Josesito Du, arranged by Emergency Services Professional Disposition: [id number] ANOTHER TYPE HLTHCARE Time spent for discharge: 45 minutes Core Measure Documentation - Palliative Care Palliative Care/ Comfort Measures: Not Applicable - Core Measures Any of the following diagnoses?: acute PR, heart failure - VTE Discharge Requirements Deep Vein Thrombosis/Pulmonary Embolism Present on Admission: No Has pt received <5 days of overlap therapy or INR<2.0: No Anticoagulant overlap therapy prescribed at discharge: No Contraindication No Overlap Therapy order at DC: Not Indicated - Acute PR Discharge Requirements Aspirin at discharge: Yes OH/ARB for LVSD if EF <40%: No Reason for no OH/ARB: Renal impairment Beta reynaldo at discharge: No Reason for no beta reynaldo on DC: Hypotension Statin for LDL = or >100 mg/dl on DC: Yes - Heart Failure Discharge Requirements OH/ARB for LVSD if EF <40%: No Reason for no OH/ARB: Renal impairment Beta reynaldo at discharge: No Reason for no beta reynaldo on DC: Hypotension Exam - Physical Exam Narrative exam: Gen: critically ill appearing, orientated x 3 HEENT: NCAT, EOMI, PERRL, OP Clear Neck: supple, no adenopathy, no thyromegaly, equivocal JVD CVS/Heart: tachycardia, normal S1S2, pulses present bilaterally Chest/Lungs: diminished bs bilateral with crackles, Symmetrical chest expansion, good air entry bilaterally GI/Abdomen: soft, NTND, good bowel sounds, no guarding or rebound /Bladder: no suprapubic tenderness, no CVA or paraspinal tenderness Extermity/Skin: no c/c/e, no obvious rash MSK: FROM x 4 Neuro: CN 2-12 grossly intact, no new focal deficits Psych: calm - Constitutional Vitals: Temp Pulse Resp BP Pulse Ox 98.3 F 111 H 20 124/62 98 11/17/18 10:00 11/17/18 10:01 11/17/18 10:01 11/17/18 10:01 11/17/18 10:01 Plan Activity: other (no strenous activity) Diet: clear liquids (while shealth in place) Follow up with: JEFFERY HANCOCK MD [Primary Care Provider] - 3-5 Days
[2018-11-17] MEDS: HEPARIN/ 0.45% NACL-25,000 UNIT/500 ML 25,000 UNIT/500 ML BAG IV SCH (11:06)
[2018-11-17] MEDS: ECOTRIN PO SCH (11:56)
--- NOTE | 2018-11-17 13:06 | Progress Note ---
Assessment and Plan Imp: 1. STEMI with RV infarct -> hypotension 2. CAD/ICMP 3. Cardiogenic shock 4. YURIY 5. Hyperkalemia 6. Obesity 7. Acute respiratory failure, hypoxia Rec: 1. Wean pressors as tolerated; IABP per cardiology 2. Transfer to [facility] for CRRT (poor candidate for iHD) 3. Monitor respiratory status, currently stable 4. Tolerating PO 5. Further plan as per renal/cardiology 6. Prognosis guarded CCT 31 minutes Plan of care reviewed w/ patient's daughter, she understands/agrees Subjective Date of service: 11/17/18 Principal diagnosis: STEMI Interval history: No events. Remains on IABP, Dobutrex, Dopamine, and Levophed. She is awake, taylor rt. Denies SOB. She is on NC. Has nausea and poor PO intake. Objective Vital Signs - 12hr 11/17/18 11/17/18 11/17/18 01:15 01:31 01:45 Temperature Pulse Rate 110 H 110 H 113 H Respiratory 25 H 18 18 Rate Blood Pressure 112/58 112/58 112/58 O2 Sat by Pulse 99 99 99 Oximetry 11/17/18 11/17/18 11/17/18 02:00 02:15 02:31 Temperature 98.7 F Pulse Rate 112 H 115 H 115 H Respiratory 22 20 22 Rate Blood Pressure 112/64 112/64 112/64 O2 Sat by Pulse 99 99 98 Oximetry 11/17/18 11/17/18 11/17/18 02:45 03:00 03:15 Temperature 98.6 F Pulse Rate 114 H 112 H 115 H Respiratory 22 24 28 H Rate Blood Pressure 112/64 114/68 114/68 O2 Sat by Pulse 99 98 99 Oximetry 11/17/18 11/17/18 11/17/18 03:21 03:31 03:45 Temperature 98.6 F Pulse Rate 112 H 112 H Respiratory 17 28 H Rate Blood Pressure 114/68 114/68 O2 Sat by Pulse 100 100 Oximetry 11/17/18 11/17/18 11/17/18 04:00 04:01 04:15 Temperature 98.6 F Pulse Rate 113 H 114 H 114 H Respiratory 23 31 H 31 H Rate Blood Pressure 112/58 112/58 112/58 O2 Sat by Pulse 98 97 98 Oximetry 11/17/18 11/17/18 11/17/18 04:31 04:45 05:00 Temperature 98.6 F Pulse Rate 114 H 112 H 113 H Respiratory 21 22 21 Rate Blood Pressure 112/58 112/58 112/59 O2 Sat by Pulse 99 98 99 Oximetry 11/17/18 11/17/18 11/17/18 05:15 05:31 05:45 Temperature Pulse Rate 105 H 104 H 114 H Respiratory 18 16 22 Rate Blood Pressure 112/59 112/59 112/59 O2 Sat by Pulse 99 99 99 Oximetry 11/17/18 11/17/18 11/17/18 06:00 06:15 06:31 Temperature 97.9 F Pulse Rate 115 H 115 H 112 H Respiratory 19 22 18 Rate Blood Pressure 124/64 124/64 124/64 O2 Sat by Pulse 99 99 98 Oximetry 11/17/18 11/17/18 11/17/18 06:45 07:00 07:01 Temperature 98.3 F Pulse Rate 113 H 130 H 110 H Respiratory 17 20 32 H Rate Blood Pressure 124/64 99/51 99/51 O2 Sat by Pulse 98 99 97 Oximetry 11/17/18 11/17/18 11/17/18 07:15 07:31 07:45 Temperature Pulse Rate 115 H 110 H 103 H Respiratory 19 17 19 Rate Blood Pressure 99/51 99/51 99/51 O2 Sat by Pulse 100 100 100 Oximetry 11/17/18 11/17/18 11/17/18 08:00 08:15 08:31 Temperature 98.7 F Pulse Rate 111 H 111 H 111 H Respiratory 20 31 H 19 Rate Blood Pressure 104/64 104/64 104/64 O2 Sat by Pulse 100 99 99 Oximetry 11/17/18 11/17/18 11/17/18 08:32 08:45 09:00 Temperature 98.1 F Pulse Rate 115 H 109 H Respiratory 28 H 24 Rate Blood Pressure 104/64 106/73 O2 Sat by Pulse 100 99 100 Oximetry 11/17/18 11/17/18 11/17/18 09:15 09:31 09:45 Temperature Pulse Rate 106 H 112 H 116 H Respiratory 26 H 19 30 H Rate Blood Pressure 106/73 106/73 106/73 O2 Sat by Pulse 99 99 99 Oximetry 11/17/18 11/17/18 11/17/18 10:00 10:01 10:15 Temperature 98.3 F Pulse Rate 112 H 111 H 108 H Respiratory 20 20 18 Rate Blood Pressure 124/62 124/62 124/62 O2 Sat by Pulse 99 98 99 Oximetry 11/17/18 11/17/18 11/17/18 10:31 10:45 11:00 Temperature 97.6 F Pulse Rate 105 H 100 H 102 H Respiratory 20 20 17 Rate Blood Pressure 124/62 124/62 129/64 O2 Sat by Pulse 100 98 99 Oximetry 11/17/18 11/17/18 11/17/18 11:15 11:31 11:45 Temperature Pulse Rate 107 H 112 H 110 H Respiratory 31 H 22 32 H Rate Blood Pressure 129/64 129/64 129/64 O2 Sat by Pulse 100 98 99 Oximetry 11/17/18 11/17/18 12:00 12:15 Temperature 98.5 F Pulse Rate 113 H 112 H Respiratory 30 H 24 Rate Blood Pressure 82/61 82/61 O2 Sat by Pulse 98 98 Oximetry Constitutional: alert, other (critically ill on pressors) Eyes: non-icteric Effort: normal Ascultation: Bilateral: clear Cardiovascular: other (tachy, RR; no mrg) Gastrointestinal: normoactive bowel sounds, soft, non-tender, non-distended Integumentary: normal Extremities: no cyanosis, no edema, cool Neurologic: normal mental status, non-focal exam, pupils equal and round, CN II- XII normal Psychiatric: mood appropriate, affect normal CBC and BMP: 11/16/18 04:03 11/17/18 03:36 ABG, PT/INR, D-dimer: PT/INR, D-dimer PT 15.4 Sec. (12.2-14.9) H 11/14/18 22:48 INR 1.25 (0.87-1.13) H 11/14/18 22:48 Abnormal lab findings: Abnormal Labs 11/14/18 11/14/18 11/14/18 20:55 21:18 22:48 WBC 21.1 H Hgb Hct MCV 78 L MCH 25 L Seg Neuts % (Manual) 91.0 H Lymphocytes % (Manual) 3.0 L Seg Neutrophils # Man 19.2 H Lymphocytes # (Manual) 0.6 L Monocytes # (Manual) Basophils # (Manual) PT INR APTT Activated Clotting Time 153 H 252 H Heparin Anti-Xa Level Sodium Potassium Chloride Carbon Dioxide BUN Creatinine Glucose POC Glucose Hemoglobin A1c Calcium Phosphorus Magnesium AST Total Creatine Kinase CK-MB (CK-2) CK-MB (CK-2) Rel Index Troponin T HDL Cholesterol 11/14/18 11/14/18 11/14/18 22:48 22:48 22:48 WBC Hgb Hct MCV MCH Seg Neuts % (Manual) Lymphocytes % (Manual) Seg Neutrophils # Man Lymphocytes # (Manual) Monocytes # (Manual) Basophils # (Manual) PT 15.4 H INR 1.25 H APTT 209.2 H* Activated Clotting Time Heparin Anti-Xa Level Sodium 132 L Potassium Chloride 91.7 L Carbon Dioxide 17 L BUN 25 H Creatinine 1.6 H Glucose 617 H* POC Glucose Hemoglobin A1c 10.7 H Calcium Phosphorus Magnesium AST Total Creatine Kinase 6149 H CK-MB (CK-2) 300.0 H CK-MB (CK-2) Rel Index 4.8 H Troponin T 25.000 H* HDL Cholesterol 77 H 11/15/18 11/15/18 11/15/18 00:47 00:47 00:47 WBC 20.8 H Hgb Hct MCV 78 L MCH 25 L Seg Neuts % (Manual) 88.0 H Lymphocytes % (Manual) 3.0 L Seg Neutrophils # Man 18.3 H Lymphocytes # (Manual) 0.6 L Monocytes # (Manual) 1.5 H Basophils # (Manual) PT INR APTT Activated Clotting Time Heparin Anti-Xa Level Sodium 131 L Potassium 5.1 H Chloride 93.0 L Carbon Dioxide 15 L BUN 25 H Creatinine 1.7 H Glucose 660 H* POC Glucose Hemoglobin A1c Calcium Phosphorus Magnesium AST 422 H Total Creatine Kinase 5473 H CK-MB (CK-2) 300.0 H CK-MB (CK-2) Rel Index 5.4 H Troponin T 30.770 H* HDL Cholesterol 11/15/18 11/15/18 11/15/18 04:13 04:13 04:13 WBC 21.4 H Hgb Hct MCV MCH 25 L Seg Neuts % (Manual) 87.0 H Lymphocytes % (Manual) 7.0 L Seg Neutrophils # Man 18.6 H Lymphocytes # (Manual) Monocytes # (Manual) 0.9 H Basophils # (Manual) 0.2 H PT INR APTT Activated Clotting Time Heparin Anti-Xa Level 0.73 H Sodium 132 L Potassium 5.3 H Chloride 92.9 L Carbon Dioxide 14 L BUN 27 H Creatinine 2.2 H Glucose 734 H* POC Glucose Hemoglobin A1c Calcium Phosphorus Magnesium AST Total Creatine Kinase 6394 H CK-MB (CK-2) 331.0 H CK-MB (CK-2) Rel Index 5.1 H Troponin T 35.300 H* HDL Cholesterol 11/15/18 11/15/18 11/15/18 05:47 05:47 06:06 WBC Hgb Hct MCV MCH Seg Neuts % (Manual) Lymphocytes % (Manual) Seg Neutrophils # Man Lymphocytes # (Manual) Monocytes # (Manual) Basophils # (Manual) PT INR APTT Activated Clotting Time Heparin Anti-Xa Level Sodium 131 L Potassium 5.6 H Chloride 92.9 L Carbon Dioxide 12 L BUN 28 H Creatinine 2.3 H Glucose 733 H* POC Glucose > 500 H Hemoglobin A1c Calcium Phosphorus 4.60 H Magnesium 1.60 L AST Total Creatine Kinase CK-MB (CK-2) CK-MB (CK-2) Rel Index Troponin T HDL Cholesterol 11/15/18 11/15/18 11/15/18 07:15 07:23 08:22 WBC Hgb Hct MCV MCH Seg Neuts % (Manual) Lymphocytes % (Manual) Seg Neutrophils # Man Lymphocytes # (Manual) Monocytes # (Manual) Basophils # (Manual) PT INR APTT Activated Clotting Time Heparin Anti-Xa Level Sodium 134 L Potassium Chloride Carbon Dioxide 11 L BUN 27 H Creatinine 2.2 H Glucose 680 H* POC Glucose > 500 H > 500 H Hemoglobin A1c Calcium Phosphorus Magnesium AST Total Creatine Kinase CK-MB (CK-2) CK-MB (CK-2) Rel Index Troponin T HDL Cholesterol 11/15/18 11/15/18 11/15/18 09:02 09:12 10:20 WBC Hgb Hct MCV MCH Seg Neuts % (Manual) Lymphocytes % (Manual) Seg Neutrophils # Man Lymphocytes # (Manual) Monocytes # (Manual) Basophils # (Manual) PT INR APTT Activated Clotting Time Heparin Anti-Xa Level Sodium Potassium 2.7 L* D Chloride 117.7 H Carbon Dioxide BUN 18 H Creatinine Glucose 402 H POC Glucose > 500 H 482 H Hemoglobin A1c Calcium Phosphorus Magnesium AST Total Creatine Kinase CK-MB (CK-2) CK-MB (CK-2) Rel Index Troponin T HDL Cholesterol 08/14/19 08/14/19 08/14/19 10:22 10:22 11:14 WBC Hgb Hct MCV MCH Seg Neuts % (Manual) Lymphocytes % (Manual) Seg Neutrophils # Man Lymphocytes # (Manual) Monocytes # (Manual) Basophils # (Manual) PT INR APTT Activated Clotting Time Heparin Anti-Xa Level 0.23 L Sodium 135 L Potassium Chloride Carbon Dioxide 15 L BUN 31 H Creatinine 2.7 H D Glucose 507 H* POC Glucose 416 H Hemoglobin A1c Calcium Phosphorus Magnesium AST Total Creatine Kinase CK-MB (CK-2) CK-MB (CK-2) Rel Index Troponin T HDL Cholesterol 11/15/18 11/15/18 11/15/18 12:14 13:10 14:14 WBC Hgb Hct MCV MCH Seg Neuts % (Manual) Lymphocytes % (Manual) Seg Neutrophils # Man Lymphocytes # (Manual) Monocytes # (Manual) Basophils # (Manual) PT INR APTT Activated Clotting Time Heparin Anti-Xa Level Sodium Potassium Chloride Carbon Dioxide BUN Creatinine Glucose POC Glucose 378 H 314 H 268 H Hemoglobin A1c Calcium Phosphorus Magnesium AST Total Creatine Kinase CK-MB (CK-2) CK-MB (CK-2) Rel Index Troponin T HDL Cholesterol 11/15/18 11/15/18 11/15/18 14:25 15:21 16:20 WBC Hgb Hct MCV MCH Seg Neuts % (Manual) Lymphocytes % (Manual) Seg Neutrophils # Man Lymphocytes # (Manual) Monocytes # (Manual) Basophils # (Manual) PT INR APTT Activated Clotting Time Heparin Anti-Xa Level Sodium 136 L Potassium Chloride Carbon Dioxide 17 L BUN 34 H Creatinine 2.8 H Glucose 249 H POC Glucose 221 H 188 H Hemoglobin A1c Calcium Phosphorus Magnesium AST Total Creatine Kinase CK-MB (CK-2) CK-MB (CK-2) Rel Index Troponin T HDL Cholesterol 11/15/18 11/15/18 11/15/18 17:21 17:31 18:22 WBC Hgb Hct MCV MCH Seg Neuts % (Manual) Lymphocytes % (Manual) Seg Neutrophils # Man Lymphocytes # (Manual) Monocytes # (Manual) Basophils # (Manual) PT INR APTT Activated Clotting Time Heparin Anti-Xa Level 0.18 L Sodium Potassium Chloride Carbon Dioxide BUN Creatinine Glucose POC Glucose 174 H 165 H Hemoglobin A1c Calcium Phosphorus Magnesium AST Total Creatine Kinase CK-MB (CK-2) CK-MB (CK-2) Rel Index Troponin T HDL Cholesterol 11/15/18 11/15/18 11/15/18 19:07 20:12 20:44 WBC Hgb Hct MCV MCH Seg Neuts % (Manual) Lymphocytes % (Manual) Seg Neutrophils # Man Lymphocytes # (Manual) Monocytes # (Manual) Basophils # (Manual) PT INR APTT Activated Clotting Time Heparin Anti-Xa Level Sodium 135 L Potassium Chloride Carbon Dioxide 17 L BUN 36 H Creatinine 3.2 H Glucose 158 H POC Glucose 162 H 143 H Hemoglobin A1c Calcium Phosphorus Magnesium AST Total Creatine Kinase CK-MB (CK-2) CK-MB (CK-2) Rel Index Troponin T HDL Cholesterol 11/15/18 11/15/18 11/15/18 21:08 22:06 23:07 WBC Hgb Hct MCV MCH Seg Neuts % (Manual) Lymphocytes % (Manual) Seg Neutrophils # Man Lymphocytes # (Manual) Monocytes # (Manual) Basophils # (Manual) PT INR APTT Activated Clotting Time Heparin Anti-Xa Level Sodium Potassium Chloride Carbon Dioxide BUN Creatinine Glucose POC Glucose 151 H 147 H 150 H Hemoglobin A1c Calcium Phosphorus Magnesium AST Total Creatine Kinase CK-MB (CK-2) CK-MB (CK-2) Rel Index Troponin T HDL Cholesterol 11/16/18 11/16/18 11/16/18 00:05 01:09 02:17 WBC Hgb Hct MCV MCH Seg Neuts % (Manual) Lymphocytes % (Manual) Seg Neutrophils # Man Lymphocytes # (Manual) Monocytes # (Manual) Basophils # (Manual) PT INR APTT Activated Clotting Time Heparin Anti-Xa Level Sodium Potassium Chloride Carbon Dioxide BUN Creatinine Glucose POC Glucose 157 H 143 H 173 H Hemoglobin A1c Calcium Phosphorus Magnesium AST Total Creatine Kinase CK-MB (CK-2) CK-MB (CK-2) Rel Index Troponin T HDL Cholesterol 11/16/18 11/16/18 11/16/18 03:17 04:03 04:03 WBC Hgb 10.0 L Hct 30.1 L MCV MCH Seg Neuts % (Manual) Lymphocytes % (Manual) Seg Neutrophils # Man Lymphocytes # (Manual) Monocytes # (Manual) Basophils # (Manual) PT INR APTT Activated Clotting Time Heparin Anti-Xa Level Sodium Potassium Chloride Carbon Dioxide 17 L BUN 38 H Creatinine 3.8 H Glucose 147 H POC Glucose 145 H Hemoglobin A1c Calcium Phosphorus Magnesium AST Total Creatine Kinase CK-MB (CK-2) CK-MB (CK-2) Rel Index Troponin T HDL Cholesterol 11/16/18 11/16/1811/16/19 04:18 05:12 06:04 WBC Hgb Hct MCV MCH Seg Neuts % (Manual) Lymphocytes % (Manual) Seg Neutrophils # Man Lymphocytes # (Manual) Monocytes # (Manual) Basophils # (Manual) PT INR APTT Activated Clotting Time Heparin Anti-Xa Level Sodium Potassium Chloride Carbon Dioxide BUN Creatinine Glucose POC Glucose 131 H 139 H 162 H Hemoglobin A1c Calcium Phosphorus Magnesium AST Total Creatine Kinase CK-MB (CK-2) CK-MB (CK-2) Rel Index Troponin T HDL Cholesterol 11/16/18 11/16/18 11/16/18 06:59 08:12 09:49 WBC Hgb Hct MCV MCH Seg Neuts % (Manual) Lymphocytes % (Manual) Seg Neutrophils # Man Lymphocytes # (Manual) Monocytes # (Manual) Basophils # (Manual) PT INR APTT Activated Clotting Time Heparin Anti-Xa Level Sodium Potassium Chloride Carbon Dioxide BUN Creatinine Glucose POC Glucose 151 H 164 H 119 H Hemoglobin A1c Calcium Phosphorus Magnesium AST Total Creatine Kinase CK-MB (CK-2) CK-MB (CK-2) Rel Index Troponin T HDL Cholesterol 11/16/18 11/16/18 11/16/18 10:30 11:37 12:51 WBC Hgb Hct MCV MCH Seg Neuts % (Manual) Lymphocytes % (Manual) Seg Neutrophils # Man Lymphocytes # (Manual) Monocytes # (Manual) Basophils # (Manual) PT INR APTT Activated Clotting Time Heparin Anti-Xa Level Sodium Potassium Chloride 107.6 H Carbon Dioxide 15 L BUN 38 H Creatinine 3.9 H Glucose 181 H POC Glucose 242 H 278 H Hemoglobin A1c Calcium 8.2 L Phosphorus Magnesium AST Total Creatine Kinase CK-MB (CK-2) CK-MB (CK-2) Rel Index Troponin T HDL Cholesterol 11/16/18 11/16/18 11/16/18 15:11 17:16 17:24 WBC Hgb Hct MCV MCH Seg Neuts % (Manual) Lymphocytes % (Manual) Seg Neutrophils # Man Lymphocytes # (Manual) Monocytes # (Manual) Basophils # (Manual) PT INR APTT Activated Clotting Time Heparin Anti-Xa Level < 0.10 L Sodium Potassium Chloride Carbon Dioxide BUN Creatinine Glucose POC Glucose 315 H 308 H Hemoglobin A1c Calcium Phosphorus Magnesium AST Total Creatine Kinase CK-MB (CK-2) CK-MB (CK-2) Rel Index Troponin T HDL Cholesterol 11/16/18 11/17/1819 23:53 01:10 03:36 WBC Hgb Hct MCV MCH Seg Neuts % (Manual) Lymphocytes % (Manual) Seg Neutrophils # Man Lymphocytes # (Manual) Monocytes # (Manual) Basophils # (Manual) PT INR APTT Activated Clotting Time Heparin Anti-Xa Level 0.17 L Sodium 134 L Potassium 5.5 H Chloride Carbon Dioxide 16 L BUN 47 H Creatinine 3.8 H Glucose 349 H POC Glucose 347 H Hemoglobin A1c Calcium 8.2 L Phosphorus Magnesium AST Total Creatine Kinase CK-MB (CK-2) CK-MB (CK-2) Rel Index Troponin T HDL Cholesterol 11/17/18 11/17/18 05:36 09:05 WBC Hgb Hct MCV MCH Seg Neuts % (Manual) Lymphocytes % (Manual) Seg Neutrophils # Man Lymphocytes # (Manual) Monocytes # (Manual) Basophils # (Manual) PT INR APTT Activated Clotting Time Heparin Anti-Xa Level 0.15 L Sodium Potassium Chloride Carbon Dioxide BUN Creatinine Glucose POC Glucose 358 H Hemoglobin A1c Calcium Phosphorus Magnesium AST Total Creatine Kinase CK-MB (CK-2) CK-MB (CK-2) Rel Index Troponin T HDL Cholesterol Chest x-ray: report reviewed, image reviewed
[2018-11-17] MEDS: DOBUTREX DRIP 500MG/D5W 250ML 500 MG/250 ML BAG IV SCH (13:30)
[2018-11-17] MEDS: INTROPIN DRIP 800 MG/D5W 250 ML 800 MG/250 ML BAG IV SCH (13:31)
--- NOTE | 2018-11-17 13:53 | Progress Note ---
Assessment and Plan Impression: * Oliguric acute kidney injury secondary to ATN * Acute inferior STEMI --s/p Emergent LHC which was notable for complete occlusion of dominant RCA. PCI w/ stent to mid RCA (Nov 14) --TTE: Dilated RV. Normal left ventricular systolic function, ejection fraction 50-55% (Nov 14) * Cardiogenic shock - IABP inserted * Metabolic acidosis * Type II diabetes mellitus * Leukocytosis, likely reactive * Anemia Plan: * SCr is stable c/w yesterday. UOP has improved * Vascular surgery was consulted for vascath placement. However, patiet is awaiting transfer to [facility]. Case discussed with vascular surgery. Hold placement of vas cath and HD as transfer pending * Cardiology recommendations reviewed * Pressors prn to maintain MAP>65 - currently on Levophed and Dobtamin * Continue 1/2 NS w/ bicarb * Medical management of lytes * Glycemic control per primary team/CCM * Strict monitoring of I/O * Dose medications for renal function * Daughter at bedside - updated Subjective Date of service: 11/17/18 Principal diagnosis: STEMI Interval history: No acute events overnight. She is awaiting transfer to [facility] Objective - Vital Signs Vital signs: Vital Signs - 12hr 11/17/18 11/17/18 11/17/18 02:00 02:15 02:31 Temperature 98.7 F Pulse Rate 112 H 115 H 115 H Respiratory 22 20 22 Rate Blood Pressure 112/64 112/64 112/64 O2 Sat by Pulse 99 99 98 Oximetry 11/17/18 11/17/18 11/17/18 02:45 03:00 03:15 Temperature 98.6 F Pulse Rate 114 H 112 H 115 H Respiratory 22 24 28 H Rate Blood Pressure 112/64 114/68 114/68 O2 Sat by Pulse 99 98 99 Oximetry 11/17/18 11/17/18 11/17/18 03:21 03:31 03:45 Temperature 98.6 F Pulse Rate 112 H 112 H Respiratory 17 28 H Rate Blood Pressure 114/68 114/68 O2 Sat by Pulse 100 100 Oximetry 11/17/18 11/17/18 11/17/18 04:00 04:01 04:15 Temperature 98.6 F Pulse Rate 113 H 114 H 114 H Respiratory 23 31 H 31 H Rate Blood Pressure 112/58 112/58 112/58 O2 Sat by Pulse 98 97 98 Oximetry 11/17/18 11/17/18 11/17/18 04:31 04:45 05:00 Temperature 98.6 F Pulse Rate 114 H 112 H 113 H Respiratory 21 22 21 Rate Blood Pressure 112/58 112/58 112/59 O2 Sat by Pulse 99 98 99 Oximetry 11/17/18 11/17/18 11/17/18 05:15 05:31 05:45 Temperature Pulse Rate 105 H 104 H 114 H Respiratory 18 16 22 Rate Blood Pressure 112/59 112/59 112/59 O2 Sat by Pulse 99 99 99 Oximetry 11/17/18 11/17/18 11/17/18 06:00 06:15 06:31 Temperature 97.9 F Pulse Rate 115 H 115 H 112 H Respiratory 19 22 18 Rate Blood Pressure 124/64 124/64 124/64 O2 Sat by Pulse 99 99 98 Oximetry 11/17/18 11/17/18 11/17/18 06:45 07:00 07:01 Temperature 98.3 F Pulse Rate 113 H 130 H 110 H Respiratory 17 20 32 H Rate Blood Pressure 124/64 99/51 99/51 O2 Sat by Pulse 98 99 97 Oximetry 11/17/18 11/17/18 11/17/18 07:15 07:31 07:45 Temperature Pulse Rate 115 H 110 H 103 H Respiratory 19 17 19 Rate Blood Pressure 99/51 99/51 99/51 O2 Sat by Pulse 100 100 100 Oximetry 11/17/18 11/17/18 11/17/18 08:00 08:15 08:31 Temperature 98.7 F Pulse Rate 111 H 111 H 111 H Respiratory 20 31 H 19 Rate Blood Pressure 104/64 104/64 104/64 O2 Sat by Pulse 100 99 99 Oximetry 11/17/18 11/17/18 11/17/18 08:32 08:45 09:00 Temperature 98.1 F Pulse Rate 115 H 109 H Respiratory 28 H 24 Rate Blood Pressure 104/64 106/73 O2 Sat by Pulse 100 99 100 Oximetry 11/17/18 11/17/18 11/17/18 09:15 09:31 09:45 Temperature Pulse Rate 106 H 112 H 116 H Respiratory 26 H 19 30 H Rate Blood Pressure 106/73 106/73 106/73 O2 Sat by Pulse 99 99 99 Oximetry 11/17/18 11/17/18 11/17/18 10:00 10:01 10:15 Temperature 98.3 F Pulse Rate 112 H 111 H 108 H Respiratory 20 20 18 Rate Blood Pressure 124/62 124/62 124/62 O2 Sat by Pulse 99 98 99 Oximetry 11/17/18 11/17/18 11/17/18 10:31 10:45 11:00 Temperature 97.6 F Pulse Rate 105 H 100 H 102 H Respiratory 20 20 17 Rate Blood Pressure 124/62 124/62 129/64 O2 Sat by Pulse 100 98 99 Oximetry 11/17/18 11/17/18 11/17/18 11:15 11:31 11:45 Temperature Pulse Rate 107 H 112 H 110 H Respiratory 31 H 22 32 H Rate Blood Pressure 129/64 129/64 129/64 O2 Sat by Pulse 100 98 99 Oximetry 11/17/18 11/17/18 11/17/18 12:00 12:15 12:31 Temperature 98.5 F Pulse Rate 113 H 112 H 114 H Respiratory 30 H 24 18 Rate Blood Pressure 82/61 82/61 82/61 O2 Sat by Pulse 98 98 99 Oximetry 11/17/18 11/17/18 12:45 13:00 Temperature 98.9 F Pulse Rate 113 H 115 H Respiratory 18 16 Rate Blood Pressure 82/61 119/69 O2 Sat by Pulse 100 99 Oximetry - General Appearance General appearance: well-developed, well-nourished EENT: ATNC Respiratory: Present: Clear to Ascultation Cardiology: regular, S1S2 Gastrointestinal: normal, no tenderness, no distended Musculoskeletal: other (no edema) Psychiatric: cooperative - Lab 11/16/18 04:03 11/17/18 03:36 Most recent lab results Calcium 8.2 mg/dL (8.4-10.2) L 11/17/18 03:36 Phosphorus 4.60 mg/dL (2.5-4.5) H 11/15/18 05:47 Magnesium 1.60 mg/dL (1.7-2.3) L 11/15/18 05:47 Medications & Allergies - Medications Allergies/Adverse Reactions: Allergies No Known Allergies Allergy (Unverified 11/14/18 20:53) Home Medications: Home Medications Medication Instructions Recorded Confirmed Last Taken Type Aspirin [Aspirin BABY CHEW TAB] 81 mg PO QDAY 11/15/18 11/15/18 Unknown History Dapagliflozin Propanediol [Farxiga] 10 mg PO DAILY 11/15/18 11/15/18 Unknown History Glimepiride [Amaryl] 2 mg PO DAILY 11/15/18 11/15/18 Unknown History Metformin HCl [metFORMIN] 1,000 tab PO BID 11/15/18 11/15/18 11/14/18 17:00 Hi story Olmesartan (Nf) [Benicar (Nf)] 40 mg PO QDAY 11/15/18 11/15/18 Unknown History Sitagliptin Phosphate [Januvia] 100 mg PO DAILY 11/15/18 11/15/18 Unknown History amLODIPine [Norvasc] 10 mg PO DAILY 11/15/18 11/15/18 Unknown History hydroCHLOROthiazide [Hctz] 12.5 mg PO QDAY 11/15/18 11/15/18 Unknown History Aspirin EC 325 mg PO QDAY #30 tablet 11/17/18 Unknown Rx AtorvaSTATin [Lipitor] 40 mg PO QHS #30 tablet 11/17/18 Unknown Rx Clopidogrel [Plavix] 75 mg PO QDAY #30 tablet 11/17/18 Unknown Rx Insulin Glargine [Lantus VIAL] 40 units SUB-Q QHS #30 units 11/17/18 Unknown Rx Lispro Insulin [HumaLOG] 1 dose SUB-Q Q6HR #1000 units 11/17/18 Unknown Rx Active Medications: Generic Name Dose Route Start Last Admin Trade Name Freq PRN Reason Stop Dose Admin Acetaminophen 650 mg 11/14/18 21:40 Tylenol PO Q4H PRN Pain MILD(1-3)/Fever >100.5/PARR Aspirin 325 mg 11/15/18 10:00 11/17/18 11:56 Ecotrin PO 325 mg QDAY MARIELY Administration Atorvastatin Calcium 40 mg 11/14/18 22:00 11/17/18 05:32 Lipitor PO Not Given QHS MARIELY Clopidogrel Bisulfate 75 mg 11/15/18 10:00 11/17/18 09:35 Plavix PO 75 mg QDAY MARIELY Administration Dextrose 0 ml 11/15/18 05:22 D50w (25gm) Syringe IV PRN PRN Hypoglycemia Hydromorphone HCl 1 mg 11/14/18 21:40 11/16/18 10:15 Dilaudid IV 1 mg Q3H PRN Administration Pain , Severe (7-10) Norepinephrine 4 mg in 250 mls @ 18.75 mls/hr 11/14/18 22:00 11/17/18 13:32 Levophed Drip 4 Mg/Ns 250 Ml IV 26 mcg/min TITR MARIELY 97.5 mls/hr Administration Protocol 5 MCG/MIN Heparin Sodium/Sodium Chloride 25,000 unit in 500 mls @ 20 mls/hr 11/15/18 06:00 11/17/18 11:06 Heparin/ 0.45% Nacl-25,000 Unit/500 Ml IV 1,000 units/hr TITRATE MARIELY 20 mls/hr Administration Protocol 1,000 UNITS/HR Heparin Sodium (Porcine) 1,000 501 mls @ 0 mls/hr 11/16/18 09:30 11/16/18 09:54 unit/ Sodium Chloride IV 1 mls/hr DIRECT MARIELY Administration Per Protocol Dopamine HCl/Dextrose 800 mg in 250 mls @ 3.401 mls/hr 11/16/18 15:00 11/17/18 13:31 Intropin Drip 800 Mg/D5w 250 Ml IV 6 mcg/kg/min TITR MARIELY 10.204 mls/hr Administration Protocol 2 MCG/KG/MIN Sodium Bicarbonate 75 meq/ 1,075 mls @ 125 mls/hr 11/16/18 19:00 11/17/18 05:25 Sodium Chloride IV 125 mls/hr DIRECT MARIELY Administration Dobutamine HCl/Dextrose 500 mg in 250 mls @ 13.605 mls/hr 11/16/18 19:00 11/17/18 13:30 Dobutrex Drip 500mg/D5w 250ml IV 5 mcg/kg/min DIRECT MARIELY 13.605 mls/hr Administration Protocol 5 MCG/KG/MIN Insulin Glargine 40 units 11/16/18 22:00 11/16/18 21:35 Lantus SUB-Q 40 units QHS MARIELY Administration Insulin Human Lispro 0 unit 11/16/18 12:00 11/17/18 11:55 Humalog SUB-Q 8 unit Q6HR MARIELY Administration Protocol Metoprolol Tartrate 2.5 mg 11/14/18 21:52 11/16/18 20:45 Lopressor IV 2.5 mg Q4H PRN Administration HR >130 Ondansetron HCl 4 mg 11/14/18 21:40 11/17/18 10:49 Zofran IV 4 mg Q8H PRN Administration Nausea And Vomiting Oxycodone/Acetaminophen 1 tab 11/14/18 21:40 11/16/18 12:49 Percocet 5/325 PO 1 tab Q6H PRN Administration Pain, Moderate (4-6) Pantoprazole Sodium 40 mg 11/14/18 22:00 11/17/18 09:32 Protonix PO 40 mg QDAY MARIELY Administration Sodium Chloride 10 ml 11/14/18 22:00 11/17/18 09:36 Sodium Chloride Flush Syringe 10 Ml IV 10 ml BID MARIELY Administration Sodium Chloride 10 ml 11/14/18 21:40 Sodium Chloride Flush Syringe 10 Ml IV PRN PRN LINE FLUSH
[2018-11-17 16:47] VITALS: BP 105/67
== END 2018-11-17 16:30 | disposition short-term general hospital (02) | DRG 270 ==
LOC: ED 19:58 → CC1 21:40
PROVIDERS: ADMIT Internal Medicine; ATTEND Internal Medicine
PROC: 027035Z Dilation of Coronary Artery, One Artery with Two Drug-eluting Intraluminal Devices, Percutaneous Approach (ICD-10-PCS; principal; 2018-11-14)
PROC: 5A02210 Assistance with Cardiac Output using Balloon Pump, Continuous (ICD-10-PCS; 2018-11-14)
PROC: 02C03ZZ Extirpation of Matter from Coronary Artery, One Artery, Percutaneous Approach (ICD-10-PCS; 2018-11-14)
PROC: 4A023N7 Measurement of Cardiac Sampling and Pressure, Left Heart, Percutaneous Approach (ICD-10-PCS; 2018-11-14)
PROC: B2111ZZ Fluoroscopy of Multiple Coronary Arteries using Low Osmolar Contrast (ICD-10-PCS; 2018-11-14)
DX: I21.19 ST elevation (STEMI) myocardial infarction involving other coronary artery of inferior wall (principal); N17.0 Acute kidney failure with tubular necrosis; R65.11 Systemic inflammatory response syndrome (SIRS) of non-infectious origin with acute organ dysfunction; R57.0 Cardiogenic shock; J96.01 Acute respiratory failure with hypoxia; E11.10 Type 2 diabetes mellitus with ketoacidosis without coma; I50.31 Acute diastolic (congestive) heart failure; E87.2 Acidosis; D72.828 Other elevated white blood cell count; D64.9 Anemia, unspecified; I95.9 Hypotension, unspecified; I25.10 Atherosclerotic heart disease of native coronary artery without angina pectoris; I25.5 Ischemic cardiomyopathy; E87.5 Hyperkalemia; E66.9 Obesity, unspecified; I11.0 Hypertensive heart disease with heart failure; I48.91 Unspecified atrial fibrillation; I95.89 Other hypotension; E83.42 Hypomagnesemia; Z82.49 Family history of ischemic heart disease and other diseases of the circulatory system; Z68.34 Body mass index [BMI] 34.0-34.9, adult; Z79.82 Long term (current) use of aspirin; Z79.899 Other long term (current) drug therapy; Z79.84 Long term (current) use of oral hypoglycemic drugs
CPT/HCPCS: 33967; 36415; 71045; 80048; 80053; 80061; 82550; 82553; 82962; 83036; 83735; 84100; 84484; 85007; 85014; 85018; 85025; 85049; 85347; 85520; 85610; 85730; 86850; 86900; 86901; 92941; 93005; 93010; 93306; 93458; 94760; G0378; A9270-GY; C1725; C1757; C1769; C1874; C1887; C1894; C9606; J0171; J0461; J1160; J1170; J1250; J1265; J1644; J1815; J2001; J2250; J2370; J2405; J3010; J3246; J3475; J7030; J7040; J7050; Q9967